=== PATIENT | male | born 1945 | race Caucasian/White ===

== ENCOUNTER 2023-08-17 20:34 | Inpatient (IN) | payer MEDICARE ==
[2023-08-17 23:44] LABS: ALT 14 U/L (4-49); AST 33 U/L (17-59); African American GFR (CKD) 7 (>60 ml/min/1.73 sqM); Alkaline Phosphatase 51 U/L (38-126); Anion Gap 16 mmol/L; Carbon Dioxide 16 mmol/L (22-30); Chloride 108 mmol/L (98-107); Glucose 208 mg/dL (74-99); Non-African American GFR(CKD) 6 (>60 ml/min/1.73 sqM); Sodium 140 mmol/L (137-145); Total Bilirubin 0.7 mg/dL (0.2-1.3); Total Protein 7.6 g/dL (6.3-8.2)
[2023-08-17 23:54] LABS: Glucose,Whole Blood 235 mg/dL (70-110)
[2023-08-17 23:56] LABS: Blood Urea Nitrogen 133 mg/dL (9-20); Potassium 4.8 mmol/L (3.5-5.1)
[2023-08-18 00:05] LABS: Basophils % (A) 1 %; Eosinophils # (A) 0.3 k/uL (0-0.7); Eosinophils % (A) 5 %; HCT 32.1 % (39.0-53.0); HGB 11.2 gm/dL (13.0-17.5); Lymphocytes # (A) 1.5 k/uL (1.0-4.8); Lymphocytes % (A) 21 %; MCH 32.4 pg (25.0-35.0); MCHC 34.7 g/dL (31.0-37.0); MCV 93.2 fL (80.0-100.0); Mean Platelet Volume 9.8; Monocytes # (A) 0.7 k/uL (0-1.0); Monocytes % (A) 11 %; Neutrophils # (A) 4.2 k/uL (1.3-7.7); Neutrophils % (A) 62 %; Platelet Count 150 k/uL (150-450); RBC 3.45 m/uL (4.30-5.90); RDW 13.4 % (11.5-15.5); WBC 6.9 k/uL (3.8-10.6)
[2023-08-18 01:41] LABS: Appearance,Urine Clear (Clear); Bilirubin,Urine Negative (Negative); Blood,Urine Negative (Negative); Color,Urine Colorless; Glucose,Urine (UA) 1+ (Negative); Ketones,Urine Negative (Negative); Leukocyte Esterase,Urine Negative (Negative); Nitrite,Urine Negative (Negative); Protein,Urine Trace (Negative); Specific Gravity,Urine 1.007 (1.001-1.035); Urobilinogen,Urine <2.0 mg/dL (<2.0)
[2023-08-18] MEDS ORDERED: NALOXONE 0.4 MG/ML 1 ML VIAL IV PRN (02:23)
[2023-08-18] MEDS ORDERED: ACETAMINOPHEN TAB 325 MG TAB PO PRN (02:23)
--- NOTE | 2023-08-18 02:30 | ED ---
General Adult HPI - General Chief complaint: Recheck/Abnormal Lab/Rx Stated complaint: Acute renal failure Time Seen by Provider: 08/17/23 23:19 Source: patient, RN notes reviewed, old records reviewed Mode of arrival: EMS Limitations: no limitations - History of Present Illness Initial comments: 77-year-old male presents as transfer from outside hospital with elevated BUN and creatinine. Patient was found to be in renal failure at [facility]. He had presented there with abnormal outpatient labs. Patient does admit to nausea over the past several days. He also admits to urinary incontinence. No abdominal pain. No chest pain. No fever. Patient denies NSAID use. He states he is a diabetic. - Related Data Allergies Allergy/AdvReac Type Severity Reaction Status Date / Time No Known Allergies Allergy Verified 08/17/23 21:21 Review of Systems ROS Statement: Those systems with pertinent positive or pertinent negative responses have been documented in the HPI. ROS Other: All systems not noted in ROS Statement are negative. Past Medical History Past Medical History: Diabetes Mellitus, Hypertension Past Surgical History: No Surgical Hx Reported Past Psychological History: No Psychological Hx Reported Smoking Status: Never smoker Past Alcohol Use History: None Reported Past Drug Use History: None Reported General Exam Limitations: no limitations General appearance: alert, in no apparent distress Head exam: Present: atraumatic, normocephalic Eye exam: Present: normal appearance. Absent: PERRL ENT exam: Present: normal exam Neck exam: Present: normal inspection. Absent: tenderness, meningismus Respiratory exam: Present: normal lung sounds bilaterally. Absent: respiratory distress Cardiovascular Exam: Present: regular rate, normal rhythm GI/Abdominal exam: Present: soft. Absent: distended, tenderness, guarding Extremities exam: Present: normal inspection Back exam: Present: normal inspection Neurological exam: Present: alert, oriented X3 Psychiatric exam: Present: normal affect, normal mood Skin exam: Present: warm, dry, intact Course Vital Signs 08/17/23 21:16 Temperature 97.8 F Pulse Rate 68 Respiratory 22 Rate Blood Pressure 182/108 O2 Sat by Pulse 98 Oximetry Medical Decision Making - Medical Decision Making Was pt. sent in by a medical professional or institution (, [place], CIRCUIT COURT CLERK, urgent care, hospital, or intermediate...) When possible be specific @ -No Did you speak to anyone other than the patient for history (EMS, parent, family, police, friend...)? What history was obtained from this source @ -No Did you review nursing and triage notes (agree or disagree)? Why? @ -I reviewed and agree with nursing and triage notes Were old charts reviewed (outside hosp., previous admission, EMS record, old EKG, old radiological studies, urgent care reports/EKG's, intermediate records)? Report findings @ -No old charts were reviewed Differential Diagnosis (chest pain, altered mental status, abdominal pain women, abdominal pain men, vaginal bleeding, weakness, fever, dyspnea, syncope, headache, dizziness, GI bleed, back pain, seizure, CVA, palpatations, mental health, musculoskeletal)? @ -Volume depletion, obstructive uropathy, renal failure EKG interpreted by me (3pts min.). @ Sinus rhythm left anterior fascicular block, rate of 60, MD interval 138, QRS duration 126, QTC 454 ST segment elevation. X-rays interpreted by me (1pt min.). @ -None done CT interpreted by me (1pt min.). @ -None done U/S interpreted by me (1pt. min.). @ -None done What testing was considered but not performed or refused? (CT, X-rays, U/S, labs)? Why? @ -None What meds were considered but not given or refused? Why? @ -None Did you discuss the management of the patient with other professionals (fili hoff i.e. , [place], CIRCUIT COURT CLERK, lab, RT, psych nurse, social economist, academic affairs manager, teacher, chief business officer, case operator)? Give summary @ -No Was smoking cessation discussed for >3mins.? @ -No Was critical care preformed (if so, how long)? @ -No Were there social determinants of health that impacted care today? How? (Homelessness, low income, unemployed, alcoholism, drug addiction, transportati on, low edu. Level, literacy, decrease access to med. care, penitentiary, rehab)? @ -No Was there de-escalation of care discussed even if they declined (Discuss DNR or withdrawal of care, Hospice)? DNR status @ -No What co-morbidities impacted this encounter? (DM, HTN, Smoking, COPD, CAD, Cancer, CVA, ARF, Chemo, Hep., AIDS, mental health diagnosis, sleep apnea, morbid obesity)? @ -[Diabetes Was patient admitted / discharged? Hospital course, mention meds given and route, prescriptions, significant lab abnormalities, going to OR and other pertinent info. @ -Patient transferred with renal failure. Patient has a BUN of 133 creatinine of 8. He has a normal potassium. He is mildly anemic. I Did Pl., Alcala catheter in the emergency department with over 1 L of urine output. Suspect this is the cause of his renal failure. Alcala catheter will be continued he will be placed on IV fluids. He'll be admitted to internal medicine with nephrology on consult. Undiagnosed new problem with uncertain prognosis? @ -No Drug Therapy requiring intensive monitoring for toxicity (Heparin, Nitro, Insulin, Cardizem)? @ -No Were any procedures done? @ -No Diagnosis/symptom? @ Renal failure, urinary retention Acute, or Chronic, or Acute on Chronic? @ -Acute Uncomplicated (without systemic symptoms) or Complicated (systemic symptoms)? @ -default Side effects of treatment? @ -No Exacerbation, Progression, or Severe Exacerbation? @ -No Poses a threat to life or bodily function? How? (Chest pain, [place], CO, pneumonia, PE, COPD, DKA, ARF, appy, cholecystitis, CVA, Diverticulitis, Homicidal, Suicidal, threat to staff... and all critical care pts) @ -[Yes, renal failure - Lab Data Result diagrams: 08/17/23 23:24 08/17/23 23:27 Lab Results 08/17/23 08/17/23 08/17/23 Range/Units 23:24 23:27 23:51 WBC 6.9 (3.8-10.6) k/uL RBC 3.45 L (4.30-5.90) m/uL Hgb 11.2 L (13.0-17.5) gm/dL Hct 32.1 L (39.0-53.0) % MCV 93.2 (80.0-100.0) fL MCH 32.4 (25.0-35.0) pg MCHC 34.7 (31.0-37.0) g/dL RDW 13.4 (11.5-15.5) % Plt Count 150 (150-450) k/uL MPV 9.8 Neutrophils % 62 % Lymphocytes % 21 % Monocytes % 11 % Eosinophils % 5 % Basophils % 1 % Neutrophils # 4.2 (1.3-7.7) k/uL Lymphocytes # 1.5 (1.0-4.8) k/uL Monocytes # 0.7 (0-1.0) k/uL Eosinophils # 0.3 (0-0.7) k/uL Basophils # 0.0 (0-0.2) k/uL Sodium 140 (137-145) mmol/L Potassium 4.8 (3.5-5.1) mmol/L Chloride 108 H (98-107) mmol/L Carbon Dioxide 16 L (22-30) mmol/L Anion Gap 16 mmol/L BUN 133 H* (9-20) mg/dL Creatinine 8.00 H* (0.66-1.25) mg/dL Est GFR (CKD-EPI)AfAm 7 (>60 ml/min/1.73 sqM) Est GFR (CKD-EPI)NonAf 6 (>60 ml/min/1.73 sqM) Glucose 208 H (74-99) mg/dL POC Glucose (mg/dL) 235 H (70-110) mg/dL POC Glu Field Test Engineer Merlyn Montejo Calcium 8.0 L (8.4-10.2) mg/dL Total Bilirubin 0.7 (0.2-1.3) mg/dL AST 33 (17-59) U/L ALT 14 (4-49) U/L Alkaline Phosphatase 51 (38-126) U/L Total Protein 7.6 (6.3-8.2) g/dL Albumin 4.0 (3.5-5.0) g/dL Urine Color Urine Appearance (Clear) Urine pH (5.0-8.0) Ur Specific [place] (1.001-1.035) Urine Protein (Negative) Urine Glucose (UA) (Negative) Urine Ketones (Negative) Urine Blood (Negative) Urine Nitrite (Negative) Urine Bilirubin (Negative) Urine Urobilinogen (<2.0) mg/dL Ur Leukocyte Esterase (Negative) 08/18/23 Range/Units 01:08 WBC (3.8-10.6) k/uL RBC (4.30-5.90) m/uL Hgb (13.0-17.5) gm/dL Hct (39.0-53.0) % MCV (80.0-100.0) fL MCH (25.0-35.0) pg MCHC (31.0-37.0) g/dL RDW (11.5-15.5) % Plt Count (150-450) k/uL MPV Neutrophils % % Lymphocytes % % Monocytes % % Eosinophils % % Basophils % % Neutrophils # (1.3-7.7) k/uL Lymphocytes # (1.0-4.8) k/uL Monocytes # (0-1.0) k/uL Eosinophils # (0-0.7) k/uL Basophils # (0-0.2) k/uL Sodium (137-145) mmol/L Potassium (3.5-5.1) mmol/L Chloride (98-107) mmol/L Carbon Dioxide (22-30) mmol/L Anion Gap mmol/L BUN (9-20) mg/dL Creatinine (0.66-1.25) mg/dL Est GFR (CKD-EPI)AfAm (>60 ml/min/1.73 sqM) Est GFR (CKD-EPI)NonAf (>60 ml/min/1.73 sqM) Glucose (74-99) mg/dL POC Glucose (mg/dL) (70-110) mg/dL POC Glu Field Test Engineer ID Calcium (8.4-10.2) mg/dL Total Bilirubin (0.2-1.3) mg/dL AST (17-59) U/L ALT (4-49) U/L Alkaline Phosphatase (38-126) U/L Total Protein (6.3-8.2) g/dL Albumin (3.5-5.0) g/dL Urine Color Colorless Urine Appearance Clear (Clear) Urine pH 6.0 (5.0-8.0) Ur Specific [place] 1.007 (1.001-1.035) Urine Protein Trace H (Negative) Urine Glucose (UA) 1+ H (Negative) Urine Ketones Negative (Negative) Urine Blood Negative (Negative) Urine Nitrite Negative (Negative) Urine Bilirubin Negative (Negative) Urine Urobilinogen <2.0 (<2.0) mg/dL Ur Leukocyte Esterase Negative (Negative) Disposition Clinical Impression: Renal failure, Urinary retention Disposition: ADMITTED IP TO THIS [facility] Condition: Stable Is patient prescribed a controlled substance at d/c from ED?: No Referrals: None,Stated [Primary Care Provider] - 1-2 days Time of Disposition: 02:30
[2023-08-18] MEDS: SODIUM CHLORIDE 0.9% 1,000 ML IV SCH ×2 (03:30→12:22)
[2023-08-18] MEDS: atenoloL 50 MG TAB PO SCH (10:04)
[2023-08-18] MEDS ORDERED: DEXTROSE 50% SYRINGE 50 ML IVP PRN ×2 (11:00)
--- NOTE | 2023-08-18 11:03 | P.NPCON ---
History of Present Illness - Reason for Consult acute renal failure - History of Present Illness Patient is a 77-year-old male with history of type 2 diabetes and hypertension. Patient presented to the hospital due to abnormal labs done at [facility]. Serum creatinine was 8.0 and B UN was 133. Patient denies any previous history of kidney diseases and reports regular follow-up with PCP Patient admits to difficulty in urination for about 1-2 months now. Patient was noted to have urine retention and Alcala catheter was placed. It appears that 2.3 L of urine was obtained. Patient has had complaints of nausea. No vomiting noted. No history of fever chills or diarrhea or cough. No history of use of NSAIDs Maintained on lisinopril/hydrochlorothiazide at home Blood sugar was 208. Blood pressure is not low, but elevated. Review of Systems As per HPI Past Medical History Past Medical History: Diabetes Mellitus, Hypertension Past Surgical History: No Surgical Hx Reported Past Psychological History: No Psychological Hx Reported Smoking Status: Never smoker Past Alcohol Use History: None Reported Past Drug Use History: None Reported Medications and Allergies Home Medications Medication Instructions Recorded Confirmed Type Insulin Glargine,Hum.rec.anlog 32 units SQ DAILY 08/18/23 08/18/23 History [Lantus Solostar Pen] Lisinopril-Hctz 20-12.5 mg 1 tab PO BID 08/18/23 08/18/23 History [Zestoretic 20-12.5] atenoloL [Tenormin] 50 mg PO DAILY 08/18/23 08/18/23 History Allergies Allergy/AdvReac Type Severity Reaction Status Date / Time No Known Allergies Allergy Verified 08/18/23 08:32 Physical Exam Vitals: Vital Signs Temp Pulse Resp BP Pulse Ox 08/18/23 09:24 98.0 F 61 16 163/99 99 08/18/23 06:00 72 18 189/106 98 08/18/23 02:56 97.5 F L 69 18 169/98 99 08/17/23 21:16 97.8 F 68 22 182/108 98 Intake and Output 08/17/23 08/18/23 08/18/23 22:59 06:59 14:59 Intake Total 300 Output Total 2300 1800 Balance -2300 -1500 Intake: Oral 300 Output: Urine 2300 1800 Other: # Bowel Movements 1 Weight 77.111 kg Patient is awake, comfortable, no acute distress Alert oriented 3 Examination of the heart S1 and S2 Examination of the lungs bilateral breath sounds are heard Abdomen is soft nontender Examination lower extremity shows no significant edema DOOR BUILDER exam grossly intact Results - Lab Results Most recent lab results Calcium 8.0 mg/dL (8.4-10.2) L 08/17/23 23:27 08/17/23 23:24 08/17/23 23:27 Assessment and Plan Assessment: 1. Acute kidney injury secondary to urine retention/obstructive uropathy. UA is benign. Alcala catheter is in place. It appears that 2.3 L of urine was obtained on initial Alcala placement. Check ultrasound of the kidneys and repeat labs today. Husam inhibitors on hold. 2. Rule out chronic kidney disease 3. Non-gap metabolic acidosis secondary to renal failure 4. Type 2 diabetes 5. Hypertension with CK D, uncontrolled Plan: And repeat labs today Resume home dose of Tenormin Continue to hold off on HUSAM inhibitor's Continue with IV fluids Repeat labs in a.m. Check ultrasound of the kidneys Consult urology Thank you for the consultation. We will continue to follow the patient with you during his hospitalization.
[2023-08-18 11:28] LABS: Glucose,Whole Blood 355 mg/dL (70-110)
[2023-08-18 11:42] LABS: African American GFR (CKD) 7 (>60 ml/min/1.73 sqM); Anion Gap 18 mmol/L; Calcium 8.4 mg/dL (8.4-10.2); Carbon Dioxide 14 mmol/L (22-30); Chloride 109 mmol/L (98-107); Glucose 308 mg/dL (74-99); Non-African American GFR(CKD) 6 (>60 ml/min/1.73 sqM); Sodium 141 mmol/L (137-145)
--- NOTE | 2023-08-18 11:45 | US ---
EXAMINATION TYPE: US kidneys/renal and bladder DATE OF EXAM: 08/18/2023 COMPARISON: NONE CLINICAL INDICATION: Male, 77 years old with history of russ; EXAM MEASUREMENTS: Right Kidney: 11.8 x 6.5 x 6.4 cm Left Kidney: 11.2 x 6.9 x 6.5 cm Right Kidney: Moderate to marked hydronephrosis noted; lateral septated cystic area measuring 3.4 x 3 .5 x 3.6 cm Left Kidney: Moderate to marked hydronephrosis Bladder: Alcala catheter Bilateral Jets seen: Cath in place IMPRESSION: 1. Prominent hydronephrosis bilateral kidneys. 2. Septated cyst lateral right kidney
[2023-08-18] MEDS: INSULIN DETEMIR (LEVEMIR) 100 UNIT/ML SYR SQ SCH (11:46)
[2023-08-18 11:50] LABS: Blood Urea Nitrogen 131 mg/dL (9-20)
[2023-08-18] MEDS: INSULIN ASPART (NovoLOG) 100 UNIT/ML VIAL SQ SCH ×2 (12:37→17:59)
--- NOTE | 2023-08-18 15:06 | P.HPIM ---
History of Present Illness H&P Date: 08/18/23 Chief Complaint: Worsening renal function This is a pleasant 77-year-old patient follows with Dr. Machuca. Patient has known diabetes, hypertension, chronic kidney disease. Patient was sent in yesterday to [facility] with elevated BUN/creatinine. Patient is given 2 L of normal saline then left AMA because his is bedbound. In February of this year patient's creatinine was 2.4 BUN 54. Yesterday it was 139/8.8. Patient had a Alcala catheter placed yesterday. Appetite is okay.. Tired. No nausea vomiting. Review of systems: GEN.: Tired EYES: None HEENT: None NECK: None RESPIRATORY: None CARDIOVASCULAR: None GASTROINTESTINAL: None GENITOURINARY: None MUSCULOSKELETAL: None LYMPHATICS: None HEMATOLOGICAL: None PSYCHIATRY: None NEUROLOGICAL: None Past medical history to include: Diabetes, hypertension, chronic kidney disease Social history: . No smoking or alcohol. [place] Physical examination: VITAL SIGNS: 98, 61, 16, 163/99, 99% room air GENERAL: BMI 26.6, sitting up in chair, awake. EYES: Pupils equal. Conjunctiva normal. HEENT: External appearance of nose and ears normal, oral cavity grossly normal. NECK: JVD not raised; masses not palpable. HEART: First and second heart sounds are normal; no edema. LUNGS: Respiratory rate normal; clear to auscultation. ABDOMEN: Soft, nontender, liver spleen not palpable, no masses palpable. . Alcala catheter PSYCH: Alert and oriented x3; mood and affect normal. MUSCULOSKELETAL:No Clubbing/cyanosis;muscles-grossly intact. OA NEUROLOGICAL: Cranial nerves grossly intact; no facial asymmetry, power and sensation grossly intact. LYMPHATICS: No lymph nodes palpable in the axilla and neck INVESTIGATIONS, reviewed in the clinical context: August 18: BUN 131 creatinine 8.17 bicarb 14 August 17: White count 6.9 hemoglobin 11.2 platelets and 15 sodium 140 bicarbonate 16 BUN 133 creatinine 8.0 glucose 208 EKG tracing personally reviewed by me-normal sinus rhythm. Left anterior fascicular block. LVH. Assessment and plan: -Acute on chronic kidney disease worsening. Nephrology consult. Strict I's and O's. Follow renal function closely -Metabolic acidosis secondary to renal failure IV sodium bicarbonate drip -Essential hypertension, but chronic kidney disease: Uncontrolled Atenolol 50 mg day. Add amlodipine 5 mg daily at bedtime -Diabetes mellitus type 2, chronically on insulin Levemir 26 units. Follow sliding scale with Accu-Cheks -Chronic kidney disease likely nephrosclerosis and diabetic nephropathy. Patient's creatinine was 2.1 in February 2023 -Primary osteoarthritis Tylenol as needed -Full code Past Medical History Past Medical History: Diabetes Mellitus, Hypertension Past Surgical History: No Surgical Hx Reported Past Psychological History: No Psychological Hx Reported Smoking Status: Never smoker Past Alcohol Use History: None Reported Past Drug Use History: None Reported Medications and Allergies Home Medications Medication Instructions Recorded Confirmed Type Insulin Glargine,Hum.rec.anlog 32 units SQ DAILY 08/18/23 08/18/23 History [Lantus Solostar Pen] Lisinopril-Hctz 20-12.5 mg 1 tab PO BID 08/18/23 08/18/23 History [Zestoretic 20-12.5] atenoloL [Tenormin] 50 mg PO DAILY 08/18/23 08/18/23 History Allergies Allergy/AdvReac Type Severity Reaction Status Date / Time No Known Allergies Allergy Verified 08/18/23 08:32 Physical Exam Vitals: Vital Signs Temp Pulse Resp BP Pulse Ox 08/18/23 09:24 98.0 F 61 16 163/99 99 08/18/23 06:00 72 18 189/106 98 08/18/23 02:56 97.5 F L 69 18 169/98 99 08/17/23 21:16 97.8 F 68 22 182/108 98 Intake and Output 08/17/23 08/18/23 08/18/23 22:59 06:59 14:59 Intake Total 300 Output Total 2300 1800 Balance -2300 -1500 Intake: Oral 300 Output: Urine 2300 1800 Other: # Bowel Movements 1 Weight 77.111 kg Results CBC & Chem 7: 08/17/23 23:24 08/18/23 10:24 Labs: Abnormal Lab Results - Last 24 Hours (Table) 08/17/23 08/17/23 08/17/23 Range/Units 23:24 23:27 23:51 RBC 3.45 L (4.30-5.90) m/uL Hgb 11.2 L (13.0-17.5) gm/dL Hct 32.1 L (39.0-53.0) % Chloride 108 H (98-107) mmol/L Carbon Dioxide 16 L (22-30) mmol/L BUN 133 H* (9-20) mg/dL Creatinine 8.00 H* (0.66-1.25) mg/dL Glucose 208 H (74-99) mg/dL POC Glucose (mg/dL) 235 H (70-110) mg/dL Calcium 8.0 L (8.4-10.2) mg/dL Urine Protein (Negative) Urine Glucose (UA) (Negative) 08/18/23 Range/Units 01:08 RBC (4.30-5.90) m/uL Hgb (13.0-17.5) gm/dL Hct (39.0-53.0) % Chloride (98-107) mmol/L Carbon Dioxide (22-30) mmol/L BUN (9-20) mg/dL Creatinine (0.66-1.25) mg/dL Glucose (74-99) mg/dL POC Glucose (mg/dL) (70-110) mg/dL Calcium (8.4-10.2) mg/dL Urine Protein Trace H (Negative) Urine Glucose (UA) 1+ H (Negative)
[2023-08-18] MEDS: DEXTROSE 5% IN WATER 1,000 ML with SODIUM BICARB (1 MEQ/ML) 100 ML IV SCH (16:23)
[2023-08-18 17:43] LABS: Glucose,Whole Blood 221 mg/dL (70-110)
[2023-08-18] MEDS: ENOXAPARIN 40 MG/0.4 ML SYRINGE SQ SCH (18:40)
[2023-08-18] MEDS: amLODIPine 5 MG TAB PO SCH (20:51)
[2023-08-19] MEDS: DEXTROSE 5% IN WATER 1,000 ML with SODIUM BICARB (1 MEQ/ML) 100 ML IV SCH ×3 (04:07→20:44)
[2023-08-19 05:52] LABS: Glucose,Whole Blood 192 mg/dL (70-110)
[2023-08-19] MEDS: INSULIN ASPART (NovoLOG) 100 UNIT/ML VIAL SQ SCH ×3 (06:47→16:50)
[2023-08-19] MEDS: atenoloL 50 MG TAB PO SCH (07:54)
[2023-08-19] MEDS: INSULIN DETEMIR (LEVEMIR) 100 UNIT/ML SYR SQ SCH (07:54)
[2023-08-19] MEDS: ENOXAPARIN 40 MG/0.4 ML SYRINGE SQ SCH (07:54)
[2023-08-19 08:47] LABS: Basophils % (A) 0 %; Eosinophils # (A) 0.2 k/uL (0-0.7); Eosinophils % (A) 2 %; HCT 31.5 % (39.0-53.0); HGB 10.6 gm/dL (13.0-17.5); Lymphocytes # (A) 1.4 k/uL (1.0-4.8); Lymphocytes % (A) 15 %; MCHC 33.8 g/dL (31.0-37.0); MCV 94.7 fL (80.0-100.0); Mean Platelet Volume 9.2; Monocytes # (A) 0.8 k/uL (0-1.0); Monocytes % (A) 8 %; Neutrophils # (A) 6.8 k/uL (1.3-7.7); Neutrophils % (A) 72 %; Platelet Count 170 k/uL (150-450); RBC 3.32 m/uL (4.30-5.90); RDW 13.4 % (11.5-15.5); WBC 9.4 k/uL (3.8-10.6)
[2023-08-19 09:00] LABS: ALT 10 U/L (4-49); AST 16 U/L (17-59); African American GFR (CKD) 7 (>60 ml/min/1.73 sqM); Albumin 3.4 g/dL (3.5-5.0); Alkaline Phosphatase 55 U/L (38-126); Anion Gap 14 mmol/L; Calcium 7.9 mg/dL (8.4-10.2); Carbon Dioxide 18 mmol/L (22-30); Chloride 108 mmol/L (98-107); Glucose 185 mg/dL (74-99); Magnesium 1.2 mg/dL (1.6-2.3); Non-African American GFR(CKD) 6 (>60 ml/min/1.73 sqM); Phosphorus 5.5 mg/dL (2.5-4.5); Sodium 140 mmol/L (137-145); Total Bilirubin 0.5 mg/dL (0.2-1.3); Total Protein 6.5 g/dL (6.3-8.2)
[2023-08-19 09:25] LABS: Blood Urea Nitrogen 132 mg/dL (9-20)
[2023-08-19 11:41] LABS: Glucose,Whole Blood 183 mg/dL (70-110)
--- NOTE | 2023-08-19 11:42 | P.PN ---
Subjective Patient is seen for follow-up for acute kidney injury mostly obstructive uropathy with significant urine retention. Status post Alcala catheter plac ement. Serum creatinine remains elevated. It is at 7.4 from 8.1 yesterday. Patient has had good urine output. No complaints of nausea vomiting. Mentation appears to be intact. I discussed renal replacement therapy with the patient if renal function does not improve further by tomorrow. No episodes of hypotension. Ultrasound shows bilateral hydronephrosis, moderate to marked Objective - Vital Signs Vital signs: Vital Signs Temp 97.6 F 08/19/23 11:06 Pulse 70 08/19/23 11:06 Resp 16 08/19/23 11:06 BP 144/90 08/19/23 11:06 Pulse Ox 100 08/19/23 11:06 FiO2 Intake & Output 08/18/23 08/19/23 08/19/23 18:59 06:59 18:59 Intake Total 900 240 597 Output Total 3250 1100 1100 Balance -2350 -860 -503 Weight 77.111 kg Intake: Oral 900 240 597 Output: Urine 3250 1100 550 Uretheral (Alcala) 600 550 Other 550 Other: Voiding Method Indwelling Catheter Indwelling Catheter # Bowel Movements 1 - Exam Patient is awake, comfortable, no acute distress Alert oriented 3 Examination of the heart S1 and S2 Examination of the lungs bilateral breath sounds are heard Abdomen is soft nontender Examination lower extremity shows no significant edema [employer]PATCHER [employer] exam grossly intact - Labs CBC & Chem 7: 08/19/23 07:39 08/19/23 07:39 Labs: Abnormal Lab Results - Last 24 Hours (Table) 08/18/23 08/18/23 08/19/23 Range/Units 10:24 17:40 05:50 RBC (4.30-5.90) m/uL Hgb (13.0-17.5) gm/dL Hct (39.0-53.0) % Chloride 109 H (98-107) mmol/L Carbon Dioxide 14 L (22-30) mmol/L BUN 131 H* (9-20) mg/dL Creatinine 8.17 H* (0.66-1.25) mg/dL Glucose 308 H (74-99) mg/dL POC Glucose (mg/dL) 221 H 192 H (70-110) mg/dL Calcium (8.4-10.2) mg/dL Phosphorus (2.5-4.5) mg/dL Magnesium (1.6-2.3) mg/dL AST (17-59) U/L Albumin (3.5-5.0) g/dL 08/19/23 08/19/23 Range/Units 07:39 07:39 RBC 3.32 L (4.30-5.90) m/uL Hgb 10.6 L (13.0-17.5) gm/dL Hct 31.5 L (39.0-53.0) % Chloride 108 H (98-107) mmol/L Carbon Dioxide 18 L (22-30) mmol/L BUN 132 H* (9-20) mg/dL Creatinine 7.47 H* (0.66-1.25) mg/dL Glucose 185 H (74-99) mg/dL POC Glucose (mg/dL) (70-110) mg/dL Calcium 7.9 L (8.4-10.2) mg/dL Phosphorus 5.5 H (2.5-4.5) mg/dL Magnesium 1.2 L (1.6-2.3) mg/dL AST 16 L (17-59) U/L Albumin 3.4 L (3.5-5.0) g/dL Assessment and Plan Assessment: 1. Acute kidney injury secondary to urine retention/obstructive uropathy. UA is benign. Alcala catheter is in place. It appears that 2.3 L of urine was obtained on initial Alcala placement. Ultrasound shows bilateral moderate to severe hydronephrosis.. Husam inhibitors on hold. 2. Rule out chronic kidney disease 3. Non-gap metabolic acidosis secondary to renal failure 4. Type 2 diabetes 5. Hypertension with CK D, uncontrolled Plan: Continue with IV fluids Repeat labs in a.m. Await urology evaluation. If renal function does not improve further by tomorrow patient will need hemodialysis. Currently asymptomatic.
[2023-08-19 11:51] VITALS: BMI 26.6
[2023-08-19] MEDS: MAGNESIUM OXIDE 400 MG TAB PO SCH ×2 (12:03→19:54)
--- NOTE | 2023-08-19 16:22 | P.GSCN ---
History of Present Illness Consult date: 08/19/23 Reason for Consult: bilateral hydronephrosis History of present illness: This is a 77 yo male admitted to the hospital with SOLITARIO. Urology is consulted for bilateral hydronephrosis and urinary retention. Patient had a Alcala catheter placed for urinary retention of 2.6 L. He indicated for the past month has been having difficulty voiding, indicates she strains to void with a weak stream No previous history of urinary retention, gross hematuria or UTIs or kidney stones. Underwent a renal bladder ultrasound that showed evidence of bilateral hydronephrosis. repeat creatinine this morning is persisting elevated at 7.7, his baseline is unknown Review of Systems - Constitutional Denies fever, Denies weight loss - Cardiovascular Denies chest pain, Denies shortness of breath - Respiratory Denies cough, Denies 7 - Gastrointestinal Reports as per HPI - Neurological Denies headaches, Denies syncope Past Medical History Past Medical History: Diabetes Mellitus, Hypertension History of Any Multi-Drug Resistant Organisms: None Reported Past Surgical History: No Surgical Hx Reported Past Anesthesia/Blood Transfusion Reactions: No Reported Reaction Past Psychological History: No Psychological Hx Reported Smoking Status: Never smoker Past Alcohol Use History: None Reported Past Drug Use History: None Reported Medications and Allergies Home Medications Medication Instructions Recorded Confirmed Type Insulin Glargine,Hum.rec.anlog 32 units SQ DAILY 08/18/23 08/18/23 History [Lantus Solostar Pen] Lisinopril-Hctz 20-12.5 mg 1 tab PO BID 08/18/23 08/18/23 History [Zestoretic 20-12.5] atenoloL [Tenormin] 50 mg PO DAILY 08/18/23 08/18/23 History Allergies Allergy/AdvReac Type Severity Reaction Status Date / Time No Known Allergies Allergy Verified 08/18/23 08:32 Surgical - Exam Vital Signs Temp Pulse Resp BP Pulse Ox 97.8 F 68 22 182/108 98 08/17/23 21:16 08/17/23 21:16 08/17/23 21:16 08/17/23 21:16 08/17/23 21:16 - General no distress, no pain - ENT normal nares, normal mucosa - Respiratory normal expansion, normal respiratory effort - Abdomen Abdomen: soft, non tender, no distended - Psychiatric oriented to time, oriented to person, oriented to place Results - Labs 08/19/23 07:39 08/19/23 07:39 Abnormal Lab Results - Last 24 Hours (Table) 08/18/23 08/19/23 08/19/23 Range/Units 17:40 05:50 07:39 RBC 3.32 L (4.30-5.90) m/uL Hgb 10.6 L (13.0-17.5) gm/dL Hct 31.5 L (39.0-53.0) % Chloride (98-107) mmol/L Carbon Dioxide (22-30) mmol/L BUN (9-20) mg/dL Creatinine (0.66-1.25) mg/dL Glucose (74-99) mg/dL POC Glucose (mg/dL) 221 H 192 H (70-110) mg/dL Calcium (8.4-10.2) mg/dL Phosphorus (2.5-4.5) mg/dL Magnesium (1.6-2.3) mg/dL AST (17-59) U/L Albumin (3.5-5.0) g/dL 08/19/23 08/19/23 Range/Units 07:39 11:39 RBC (4.30-5.90) m/uL Hgb (13.0-17.5) gm/dL Hct (39.0-53.0) % Chloride 108 H (98-107) mmol/L Carbon Dioxide 18 L (22-30) mmol/L BUN 132 H* (9-20) mg/dL Creatinine 7.47 H* (0.66-1.25) mg/dL Glucose 185 H (74-99) mg/dL POC Glucose (mg/dL) 183 H (70-110) mg/dL Calcium 7.9 L (8.4-10.2) mg/dL Phosphorus 5.5 H (2.5-4.5) mg/dL Magnesium 1.2 L (1.6-2.3) mg/dL AST 16 L (17-59) U/L Albumin 3.4 L (3.5-5.0) g/dL Diabetes panel 08/19/23 Range/Units 07:39 Sodium 140 (137-145) mmol/L Potassium 4.0 (3.5-5.1) mmol/L Chloride 108 H (98-107) mmol/L Carbon Dioxide 18 L (22-30) mmol/L BUN 132 H* (9-20) mg/dL Creatinine 7.47 H* (0.66-1.25) mg/dL Glucose 185 H (74-99) mg/dL Calcium 7.9 L (8.4-10.2) mg/dL AST 16 L (17-59) U/L ALT 10 (4-49) U/L Alkaline Phosphatase 55 (38-126) U/L Total Protein 6.5 (6.3-8.2) g/dL Albumin 3.4 L (3.5-5.0) g/dL Calcium panel 08/19/23 Range/Units 07:39 Calcium 7.9 L (8.4-10.2) mg/dL Phosphorus 5.5 H (2.5-4.5) mg/dL Albumin 3.4 L (3.5-5.0) g/dL Pituitary panel 08/19/23 Range/Units 07:39 Sodium 140 (137-145) mmol/L Potassium 4.0 (3.5-5.1) mmol/L Chloride 108 H (98-107) mmol/L Carbon Dioxide 18 L (22-30) mmol/L BUN 132 H* (9-20) mg/dL Creatinine 7.47 H* (0.66-1.25) mg/dL Glucose 185 H (74-99) mg/dL Calcium 7.9 L (8.4-10.2) mg/dL Adrenal panel 08/19/23 Range/Units 07:39 Sodium 140 (137-145) mmol/L Potassium 4.0 (3.5-5.1) mmol/L Chloride 108 H (98-107) mmol/L Carbon Dioxide 18 L (22-30) mmol/L BUN 132 H* (9-20) mg/dL Creatinine 7.47 H* (0.66-1.25) mg/dL Glucose 185 H (74-99) mg/dL Calcium 7.9 L (8.4-10.2) mg/dL Total Bilirubin 0.5 (0.2-1.3) mg/dL AST 16 L (17-59) U/L ALT 10 (4-49) U/L Alkaline Phosphatase 55 (38-126) U/L Total Protein 6.5 (6.3-8.2) g/dL Albumin 3.4 L (3.5-5.0) g/dL Assessment and Plan Assessment: 77-year-old male admitted to the hospital with acute kidney injury renal ultrasound showed evidence of bilateral hydronephrosis, patient was in 2.6 L urinary retention and bilateral hydronephrosis most likely secondary to his urinary retention and bladder distention. -Repeat creatinine tomorrow, if persistently elevated we will obtain a CT abdomen and pelvis to rule out any other etiologies for the hydronephrosis
[2023-08-19 16:23] LABS: Glucose,Whole Blood 201 mg/dL (70-110)
--- NOTE | 2023-08-19 17:34 | P.PN ---
Progress Note - Text Progress Note Date: 08/19/23 Chief Complaint: Worsening renal function This is a pleasant 77-year-old patient follows with Dr. Machuca. Patient has known diabetes, hypertension, chronic kidney disease. Patient was sent in yesterday to [facility] with elevated BUN/creatinine. Patient is given 2 L of normal saline then left AMA because his is bedbound. In February of this year patient's creatinine was 2.4 BUN 54. Yesterday it was 139/8.8. Patient had a Alcala catheter placed yesterday. Appetite is okay.. Tired. No nausea vomiting. August 19: IV sodium bicarbonate drip because of metabolic acidosis. Eating well. Tired. Up in a chair. Active Medications Acetaminophen (Acetaminophen Tab 325 Mg Tab) 650 mg PO Q6HR PRN PRN Reason: Mild Pain or Fever > 100.5 Amlodipine Besylate (Amlodipine 5 Mg Tab) 5 mg PO HS [facility] Last Admin: 08/18/23 20:51 Dose: 5 mg Atenolol (Atenolol 50 Mg Tab) 50 mg PO DAILY [facility] Last Admin: 08/19/23 07:54 Dose: 50 mg Dextrose/Water (Dextrose 50% Syringe 50 Ml) 25 ml IVP PER PROTOCOL PRN; Protocol PRN Reason: Hypoglycemia Dextrose/Water (Dextrose 50% Syringe 50 Ml) 50 ml IVP PER PROTOCOL PRN; Protocol PRN Reason: Hypoglycemia Enoxaparin Sodium (Enoxaparin 30 Mg/0.3 Ml Syringe) 30 mg SQ DAILY [facility] Sodium Bicarbonate 100 ml/ (Dextrose/Water) 1,100 mls @ 100 mls/hr IV .Q11H [facility] Last Admin: 08/19/23 10:08 Dose: 100 mls/hr Insulin Aspart (Insulin Aspart (Novolog) 100 Unit/Ml Vial) 0 unit SQ AC-TID [facility] ; Protocol Last Admin: 08/19/23 16:50 Dose: 4 unit Insulin Detemir (Insulin Detemir (Levemir) 100 Unit/Ml Syr) 26 unit SQ DAILY [facility] Last Admin: 08/19/23 07:54 Dose: 26 unit Magnesium Oxide (Magnesium Oxide 400 Mg Tab) 200 mg PO BID [facility] Last Admin: 08/19/23 12:03 Dose: 200 mg Naloxone HCl (Naloxone 0.4 Mg/Ml 1 Ml Vial) 0.2 mg IV Q2M PRN PRN Reason: Opioid Reversal Past medical history to include: Diabetes, hypertension, chronic kidney disease Social history: . No smoking or alcohol. [place] Physical examination: VITAL SIGNS: 97.8, 69, 16, 109/74, 99% room air GENERAL: BMI 26.6, sitting up in chair, EYES: Pupils equal. Conjunctiva normal. HEENT: External appearance of nose and ears normal, oral cavity grossly normal. NECK: JVD not raised; masses not palpable. HEART: First and second heart sounds are normal; no edema. LUNGS: Respiratory rate normal; clear to auscultation. ABDOMEN: Soft, nontender, liver spleen not palpable, no masses palpable. . Alcala catheter PSYCH: Alert and oriented x3; mood and affect normal. MUSCULOSKELETAL:No Clubbing/cyanosis;muscles-grossly intact. OA INVESTIGATIONS, reviewed in the clinical context: August 19: White count 9.4 hemoglobin 10.6 platelets 64187 BUN 132 creatinine 7.47 magnesium 1.2 August 18: BUN 131 creatinine 8.17 bicarb 14 August 17: White count 6.9 hemoglobin 11.2 platelets and 15 sodium 140 bicarbonate 16 BUN 133 creatinine 8.0 glucose 208 EKG tracing personally reviewed by me-normal sinus rhythm. Left anterior fascicular block. LVH. Assessment and plan: -Acute on chronic kidney disease: Slow to respond Nephrology consult. Strict I's and O's. IV bicarbonate drip Follow renal function closely -Metabolic acidosis secondary to renal failure: Slow to respond IV sodium bicarbonate drip -Essential hypertension, with chronic kidney disease: Better Atenolol 50 mg day. amlodipine 5 mg daily at bedtime -Diabetes mellitus type 2, chronically on insulin Levemir 26 units. Follow sliding scale with Accu-Cheks -Chronic kidney disease likely nephrosclerosis and diabetic nephropathy. Patient's creatinine was 2.1 in February 2023 -Primary osteoarthritis Tylenol as needed -Full code Discussed with patient. Continue IV bicarbonate drip. Follow labs. Past Medical History Past Medical History: Diabetes Mellitus, Hypertension Past Surgical History: No Surgical Hx Reported Past Psychological History: No Psychological Hx Reported Smoking Status: Never smoker Past Alcohol Use History: None Reported Past Drug Use History: None Reported
[2023-08-19 19:38] LABS: Glucose,Whole Blood 221 mg/dL (70-110)
[2023-08-19] MEDS: amLODIPine 5 MG TAB PO SCH (19:54)
[2023-08-20 05:52] LABS: Glucose,Whole Blood 230 mg/dL (70-110)
[2023-08-20] MEDS: INSULIN ASPART (NovoLOG) 100 UNIT/ML VIAL SQ SCH ×4 (06:04→16:57)
[2023-08-20 07:01] LABS: African American GFR (CKD) 8 (>60 ml/min/1.73 sqM); Anion Gap 12 mmol/L; Calcium 7.4 mg/dL (8.4-10.2); Carbon Dioxide 26 mmol/L (22-30); Chloride 101 mmol/L (98-107); Glucose 217 mg/dL (74-99); Non-African American GFR(CKD) 7 (>60 ml/min/1.73 sqM); Potassium 3.3 mmol/L (3.5-5.1); Sodium 139 mmol/L (137-145)
[2023-08-20 07:13] LABS: Blood Urea Nitrogen 130 mg/dL (9-20)
[2023-08-20] MEDS: MAGNESIUM OXIDE 400 MG TAB PO SCH ×2 (08:53→20:41)
[2023-08-20] MEDS: atenoloL 50 MG TAB PO SCH (08:55)
[2023-08-20 08:56] LABS: Glucose,Whole Blood 263 mg/dL (70-110)
[2023-08-20] MEDS ORDERED: ENOXAPARIN 30 MG/0.3 ML SYRINGE SQ SCH (09:00)
[2023-08-20] MEDS ORDERED: INSULIN DETEMIR (LEVEMIR) 100 UNIT/ML SYR SQ SCH (09:00)
[2023-08-20] MEDS: DEXTROSE 5% IN WATER 1,000 ML with SODIUM BICARB (1 MEQ/ML) 100 ML IV SCH ×2 (10:00→20:41)
[2023-08-20] MEDS: APIXABAN 2.5 MG TABLET PO SCH ×2 (10:38→20:41)
[2023-08-20] MEDS ORDERED: POTASSIUM CHLORIDE ER 20 MEQ TAB.ER PO STA (10:59)
--- NOTE | 2023-08-20 10:59 | P.PN ---
Subjective Patient is seen for follow-up for acute kidney injury mostly obstructive uropathy with significant urine retention. Status post Alcala catheter plac ement. Serum creatinine remains elevated. It is at 6.9 from 8.1 on admission. Patient has had good urine output. No complaints of nausea vomiting. Mentation appears to be intact. I discussed renal replacement therapy with the patient we will continue to monitor on a daily basis for need for dialysis. Ultrasound shows bilateral hydronephrosis, moderate to marked. Patient has been evaluated by urology. Will likely need intervention. Computed tomography scan of the abdomen will be ordered. Objective - Vital Signs Vital signs: Vital Signs Temp 97.8 F 08/19/23 15:17 Pulse 96 08/20/23 04:00 Resp 16 08/20/23 04:00 BP 112/72 08/20/23 04:00 Pulse Ox 96 08/20/23 04:00 FiO2 Intake & Output 08/19/23 08/20/23 08/20/23 18:59 06:59 18:59 Intake Total 837 118 Output Total 2125 1800 800 Balance -1288 -1800 -682 Weight 77.111 kg Intake: Oral 837 118 Output: Urine 1575 1800 800 Uretheral (Alcala) 550 500 Other 550 Other: Voiding Method Indwelling Catheter Indwelling Catheter # Bowel Movements 1 - Exam Patient is awake, comfortable, no acute distress Alert oriented 3 Examination of the heart S1 and S2 Examination of the lungs bilateral breath sounds are heard Abdomen is soft nontender Examination lower extremity shows no significant edema ACCOUNT DEVELOPMENT SPECIALIST exam grossly intact - Labs CBC & Chem 7: 08/19/23 07:39 08/20/23 06:28 Labs: Abnormal Lab Results - Last 24 Hours (Table) 08/19/23 08/19/23 08/19/23 Range/Units 11:39 16:21 19:36 Potassium (3.5-5.1) mmol/L BUN (9-20) mg/dL Creatinine (0.66-1.25) mg/dL Glucose (74-99) mg/dL POC Glucose (mg/dL) 183 H 201 H 221 H (70-110) mg/dL Calcium (8.4-10.2) mg/dL 08/20/23 08/20/23 08/20/23 Range/Units 05:50 06:28 08:52 Potassium 3.3 L (3.5-5.1) mmol/L BUN 130 H* (9-20) mg/dL Creatinine 6.94 H (0.66-1.25) mg/dL Glucose 217 H (74-99) mg/dL POC Glucose (mg/dL) 230 H 263 H (70-110) mg/dL Calcium 7.4 L (8.4-10.2) mg/dL Assessment and Plan Assessment: 1. Acute kidney injury secondary to urine retention/obstructive uropathy. UA is benign. Alcala catheter is in place. It appears that 2.3 L of urine was obtained on initial Alcala placement. Ultrasound shows bilateral moderate to severe hydronephrosis.. Husam inhibitors on hold. Being monitored daily for need for renal replacement therapy. 2. Rule out chronic kidney disease 3. Non-gap metabolic acidosis secondary to renal failure 4. Type 2 diabetes 5. Hypertension with CK D, uncontrolled 6. Hypokalemia, will replace cautiously Plan: Continue with IV fluids Replace potassium cautiously Check CT of the abdomen and pelvis Await further urology input. Continue to monitor for need for dialysis if renal function does not improve further.
--- NOTE | 2023-08-20 11:14 | CT ---
EXAMINATION TYPE: CT abdomen pelvis wo con DATE OF EXAM: 08/20/2023 COMPARISON: None HISTORY: Elevated kidney function. CT DLP: 603.8 mGycm Examination of the solid and hollow viscera is limited given the lack of contrast. FINDINGS: LUNG BASES: No evidence for nodule. No evidence for infiltrate. LIVER/GB: The gallbladder is unremarkable. No space-occupying hepatic lesion. PANCREAS: No pancreatic mass identified. No inflammatory process seen. SPLEEN: No evidence for splenomegaly. No intrasplenic lesions seen. ADRENALS: No adrenal nodules identified. No evidence for thickening. KIDNEYS: There is moderate to severe hydroureteronephrosis extending to a markedly thickened urinary bladder wall. Correlate for neoplasm or underlying cystitis nonspecific type. Alcala catheter is in [address] [place]. BOWEL: Appendix has a normal appearance. No evidence of bowel obstruction. No inflammatory process. Lymph nodes: No evidence for adenopathy greater than 1 cm. Abdominal aorta: Atheromatous changes seen. No evidence for aneurysm. Genital organs: Prostate gland calcifications noted. Other: No significant abnormality. IMPRESSION: 1.There is moderate to severe hydroureteronephrosis extending to a markedly thickened urinary bladder wall. Correlate for neoplasm or underlying cystitis nonspecific type.
--- NOTE | 2023-08-20 11:15 | P.CRDCN ---
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 We have been asked to evaluate the patient for new onset atrial fibrillation. Patient has a history of diabetes and hypertension. Patient resented to the hospital on 08/18 and has been treated for acute kidney injury with obstructive uropathy status post Alcala catheter followed by nephrology and urology. Patient states he had an episode of indigestion last night but feels better now. Patient was found to be in atrial fibrillation and subsequently converted to sinus rhythm. EKG #1 normal sinus rhythm #2 atrial fibrillation at 104 bpm WBC 9.4, hemoglobin 10.6. Sodium 139, potassium 3.3, BUN 130 and creatinine 6.94. Blood sugar 217. Home cardiac medications: Atenolol 50 mg daily, lisinoprilcritical her thiazide 2012 0.5 mg twice daily Review Of Systems: At the time of my evaluation: Constitutional: No fever, no chills. No weakness, fatigue or lethargy. EENT: No headache. No dizziness. Lungs: No shortness of breath, cough, no sputum production. No wheezing. Cardiovascular: No chest pain, no lower extremity edema. No palpitations. No paroxysmal nocturnal dyspnea. No orthopnea. No lightheadedness or dizziness. No syncopal episodes. Abdominal: No abdominal pain. No nausea, vomiting. No diarrhea. No constipation. No bloody or tarry stools. Genitourinary: No dysuria.. No urinary retention. Musculoskeletal: No myalgias. No muscle weakness, no frequent falls. No back pain. No neck pain. Integumentary: No wounds. No rash. No unusual bruising. Neurologic: No aphasia. No facial droop. No change in mentation. No head injury. No headache. Physical examination: Gen: This is a 77-year-old male patient. He is resting in bed appears to be comfortable and in no acute distress. VS: reviewed HEENT: Head is atraumatic, normocephalic. Pupils equal, round. Sclerae is anicteric. NECK: Supple. No JVD. . LUNGS: Clear to auscultation. No wheezes or rhonchi. No intercostal retractions. HEART: Regular rate and rhythm. No murmur. ABDOMEN: Soft No tenderness. EXTREMITIES: No pedal edema. No calf tenderness. NEUROLOGICAL: Patient is awake, alert and oriented x3. Assessment: Acute kidney injury New onset of A. fib with RVR, paroxysmal, currently in sinus rhythm Hypertension Diabetes Plan: Continue atenolol 50 mg daily Start patient on eliquis 2.5 mg twice daily Obtain 2-D echocardiogram and Doppler study to assess cardiac structure and function Further recommendations to follow based upon clinical course Thank you kindly for this consultation. Nurse practitioner note has been reviewed, I agree with documented findings and plan of care. Patient was seen and examined. Past Medical History Past Medical History: Diabetes Mellitus, Hypertension History of Any Multi-Drug Resistant Organisms: None Reported Past Surgical History: No Surgical Hx Reported Past Anesthesia/Blood Transfusion Reactions: No Reported Reaction Past Psychological History: No Psychological Hx Reported Smoking Status: Never smoker Past Alcohol Use History: None Reported Past Drug Use History: None Reported Medications and Allergies Home Medications Medication Instructions Recorded Confirmed Type Insulin Glargine,Hum.rec.anlog 32 units SQ DAILY 08/18/23 08/18/23 History [Lantus Solostar Pen] Lisinopril-Hctz 20-12.5 mg 1 tab PO BID 08/18/23 08/18/23 History [Zestoretic 20-12.5] atenoloL [Tenormin] 50 mg PO DAILY 08/18/23 08/18/23 History Allergies Allergy/AdvReac Type Severity Reaction Status Date / Time No Known Allergies Allergy Verified 08/18/23 08:32 Physical Exam Vitals: Vital Signs Temp Pulse Resp BP Pulse Ox 08/20/23 04:00 96 16 112/72 96 08/20/23 00:27 114 H 18 115/70 97 08/19/23 19:53 75 18 120/82 99 08/19/23 15:17 97.8 F 69 16 109/74 99 08/19/23 11:06 97.6 F 70 16 144/90 100 Intake and Output 08/19/23 08/20/23 08/20/23 22:59 06:59 14:59 Intake Total 240 118 Output Total 1025 1800 800 Balance -000 -7305 -522 Intake: Oral 240 118 Output: Urine 1025 1800 800 Uretheral (Alcala) 500 Other: Voiding Method Indwelling Catheter Indwelling Catheter Results 08/19/23 07:39 08/20/23 06:28 Comprehensive Metabolic Panel 08/20/23 Range/Units 06:28 Sodium 139 (137-145) mmol/L Potassium 3.3 L (3.5-5.1) mmol/L Chloride 101 (98-107) mmol/L Carbon Dioxide 26 (22-30) mmol/L BUN 130 H* (9-20) mg/dL Creatinine 6.94 H (0.66-1.25) mg/dL Glucose 217 H (74-99) mg/dL Calcium 7.4 L (8.4-10.2) mg/dL Current Medications Generic Name Dose Route Start Last Admin Trade Name Freq PRN Reason Stop Dose Admin Acetaminophen 650 mg 08/18/23 02:23 Acetaminophen Tab 325 Mg Tab PO Q6HR PRN Mild Pain or Fever > 100.5 Amlodipine Besylate 5 mg 08/18/23 21:00 08/19/23 19:54 Amlodipine 5 Mg Tab PO 5 mg HS EDGARDO Administration Atenolol 50 mg 08/18/23 09:45 08/20/23 08:55 Atenolol 50 Mg Tab PO 50 mg DAILY EDGARDO Administration Dextrose/Water 25 ml 08/18/23 11:00 Dextrose 50% Syringe 50 Ml IVP PER PROTOCOL PRN Hypoglycemia Protocol Dextrose/Water 50 ml 08/18/23 11:00 Dextrose 50% Syringe 50 Ml IVP PER PROTOCOL PRN Hypoglycemia Protocol Enoxaparin Sodium 30 mg 08/20/23 09:00 08/20/23 08:54 Enoxaparin 30 Mg/0.3 Ml Syringe SQ 30 mg DAILY EDGARDO Administration Sodium Bicarbonate 100 ml/ 1,100 mls @ 100 mls/hr 08/18/23 15:15 08/19/23 20:44 Dextrose/Water IV 100 mls/hr .Q11H EDGARDO Administration Insulin Aspart 0 unit 08/18/23 12:30 08/20/23 06:04 Insulin Aspart (Novolog) 100 Unit/Ml Vial SQ 4 unit AC-TID EDGARDO Administration Protocol Insulin Detemir 30 unit 08/20/23 09:00 08/20/23 08:53 Insulin Detemir (Levemir) 100 Unit/Ml Syr SQ 30 unit DAILY EDGARDO Administration Magnesium Oxide 200 mg 08/19/23 11:45 08/20/23 08:53 Magnesium Oxide 400 Mg Tab PO 200 mg BID EDGARDO Administration Naloxone HCl 0.2 mg 08/18/23 02:23 Naloxone 0.4 Mg/Ml 1 Ml Vial IV Q2M PRN Opioid Reversal Intake and Output 08/19/23 08/20/23 08/20/23 22:59 06:59 14:59 Intake Total 240 118 Output Total 1025 1800 800 [facility] -242 -1800 -672 Intake: Oral 240 118 Output: Urine 1025 1800 800 Uretheral (Alcala) 500 Other: Voiding Method Indwelling Catheter Indwelling Catheter 08/19/23 07:39 08/20/23 06:28
[2023-08-20 11:25] LABS: Glucose,Whole Blood 216 mg/dL (70-110)
--- NOTE | 2023-08-20 13:59 | P.PN ---
Subjective Progress Note Date: 08/20/23 Principal diagnosis: Bilateral hydronephrosis Creatinine is 6.94. Reviewed his CT scan evidence of dilated ureter down to a thickened bladder, consistent with neurogenic bladder. Still making good urine output Objective - Vital Signs Vital signs: Vital Signs Temp 97.6 F 08/20/23 11:47 Pulse 62 08/20/23 11:47 Resp 18 08/20/23 11:47 BP 155/82 08/20/23 11:47 Pulse Ox 99 08/20/23 11:47 FiO2 Intake & Output 08/19/23 08/20/23 08/20/23 18:59 06:59 18:59 Intake Total 837 598 Output Total 2125 1800 800 Balance -1288 -1800 -202 Weight 77.111 kg Intake: Oral 837 598 Output: Urine 1575 1800 800 Uretheral (Alcala) 550 500 Other 550 Other: Voiding Method Indwelling Catheter Indwelling Catheter Indwelling Catheter # Bowel Movements 1 - Constitutional General appearance: Present: no acute distress - Gastrointestinal General gastrointestinal: Present: soft. Absent: distended, tenderness - Labs CBC & Chem 7: 08/19/23 07:39 08/20/23 06:28 Labs: Abnormal Lab Results - Last 24 Hours (Table) 08/19/23 08/19/23 08/20/23 Range/Units 16:21 19:36 05:50 Potassium (3.5-5.1) mmol/L BUN (9-20) mg/dL Creatinine (0.66-1.25) mg/dL Glucose (74-99) mg/dL POC Glucose (mg/dL) 201 H 221 H 230 H (70-110) mg/dL Calcium (8.4-10.2) mg/dL 08/20/23 08/20/23 08/20/23 Range/Units 06:28 08:52 11:23 Potassium 3.3 L (3.5-5.1) mmol/L BUN 130 H* (9-20) mg/dL Creatinine 6.94 H (0.66-1.25) mg/dL Glucose 217 H (74-99) mg/dL POC Glucose (mg/dL) 263 H 216 H (70-110) mg/dL Calcium 7.4 L (8.4-10.2) mg/dL Assessment and Plan Assessment: 77-year-old male admitted to the hospital with acute kidney injury renal ultrasound showed evidence of bilateral hydronephrosis, patient was in 2.6 L urinary retention and bilateral hydronephrosis most likely secondary to his urinary retention and bladder distention.underwent a CT this morning, which show ed dilated ureter down to the bladder. On review of imaging consistent with neurogenic bladder. Given this finding is unlikely to benefit from ureteral stents as this is chronic dilation from prolonged urinary retention. I don't see any evidence of obstructive lymphadenopathy, or ureteral stone
--- NOTE | 2023-08-20 15:01 | P.PN ---
Progress Note - Text Progress Note Date: 08/20/23 Chief Complaint: Worsening renal function This is a pleasant 77-year-old patient follows with Dr. Machuca. Patient has known diabetes, hypertension, chronic kidney disease. Patient was sent in yesterday to [facility] with elevated BUN/creatinine. Patient is given 2 L of normal saline then left AMA because his is bedbound. In February of this year patient's creatinine was 2.4 BUN 54. Yesterday it was 139/8.8. Patient had a Alcala catheter placed yesterday. Appetite is okay.. Tired. No nausea vomiting. August 19: IV sodium bicarbonate drip because of metabolic acidosis. Eating well. Tired. Up in a chair. August 20: Remains on IV sodium bicarbonate drip. This will drop in creatinine to 6.94. Good urine output. Eating well. Up in a chair. Active Medications Acetaminophen (Acetaminophen Tab 325 Mg Tab) 650 mg PO Q6HR PRN PRN Reason: Mild Pain or Fever > 100.5 Amlodipine Besylate (Amlodipine 5 Mg Tab) 5 mg PO HS [facility] Last Admin: 08/19/23 19:54 Dose: 5 mg Apixaban (Apixaban 2.5 Mg Tablet) 2.5 mg PO BID [facility]; Protocol Last Admin: 08/20/23 10:38 Dose: 2.5 mg Atenolol (Atenolol 50 Mg Tab) 50 mg PO DAILY [facility] Last Admin: 08/20/23 08:55 Dose: 50 mg Dextrose/Water (Dextrose 50% Syringe 50 Ml) 25 ml IVP PER PROTOCOL PRN; Protocol PRN Reason: Hypoglycemia Dextrose/Water (Dextrose 50% Syringe 50 Ml) 50 ml IVP PER PROTOCOL PRN; Protocol PRN Reason: Hypoglycemia Sodium Bicarbonate 100 ml/ (Dextrose/Water) 1,100 mls @ 100 mls/hr IV .Q11H [facility] Last Admin: 08/19/23 20:44 Dose: 100 mls/hr Insulin Aspart (Insulin Aspart (Novolog) 100 Unit/Ml Vial) 0 unit SQ AC-TID [facility]; Protocol Last Admin: 08/20/23 12:31 Dose: 4 unit Insulin Detemir (Insulin Detemir (Levemir) 100 Unit/Ml Syr) 30 unit SQ DAILY [facility] Last Admin: 08/20/23 08:53 Dose: 30 unit Magnesium Oxide (Magnesium Oxide 400 Mg Tab) 200 mg PO BID [facility] Last Admin: 08/20/23 08:53 Dose: 200 mg Naloxone HCl (Naloxone 0.4 Mg/Ml 1 Ml Vial) 0.2 mg IV Q2M PRN PRN Reason: Opioid Reversal Past medical history to include: Diabetes, hypertension, chronic kidney disease Social history: . No smoking or alcohol. 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 Physical examination: VITAL SIGNS: 97.6, 62, 18, 155/82, 99% room air GENERAL: sitting up in chair, EYES: Pupils equal. Conjunctiva normal. HEENT: External appearance of nose and ears normal, oral cavity grossly normal. NECK: JVD not raised; masses not palpable. HEART: First and second heart sounds are normal; no edema. LUNGS: Respiratory rate normal; clear to auscultation. ABDOMEN: Soft, nontender, liver spleen not palpable, no masses palpable. . Alcala catheter PSYCH: Alert and oriented x3; mood and affect normal. MUSCULOSKELETAL:No Clubbing/cyanosis;muscles-grossly intact. OA INVESTIGATIONS, reviewed in the clinical context: August 20: Potassium 3.3 BUN 1:30 creatinine 6.94 TSH 0.888 August 19: White count 9.4 hemoglobin 10.6 platelets 17474 BUN 132 creatinine 7.47 magnesium 1.2 August 18: BUN 131 creatinine 8.17 bicarb 14 August 17: White count 6.9 hemoglobin 11.2 platelets and 15 sodium 140 bicarbonate 16 BUN 133 creatinine 8.0 glucose 208 EKG tracing personally reviewed by me-normal sinus rhythm. Left anterior fascicular block. LVH. Assessment and plan: -Acute on chronic kidney disease: Slow to respond Nephrology consult. Strict I's and O's. IV bicarbonate drip Follow renal function closely -Metabolic acidosis secondary to renal failure: IV sodium bicarbonate drip -Essential hypertension, with chronic kidney disease: Better Atenolol 50 mg day. amlodipine 5 mg daily at bedtime -Diabetes mellitus type 2, chronically on insulin, uncontrolled with hyperglycemia Increase Levemir 34 units. Had NovoLog 6 units before meals 3 times a day Follow sliding scale with Accu-Cheks -Chronic kidney disease likely nephrosclerosis and diabetic nephropathy. creatinine was 2.1 in February 2023 -Primary osteoarthritis Tylenol as needed -Full code Continue IV bicarbonate drip. Adjust insulin. Follow with nephrology. Past Medical History Past Medical History: Diabetes Mellitus, Hypertension Past Surgical History: No Surgical Hx Reported Past Psychological History: No Psychological Hx Reported Smoking Status: Never smoker Past Alcohol Use History: None Reported Past Drug Use History: None Reported
[2023-08-20 16:30] LABS: Glucose,Whole Blood 154 mg/dL (70-110)
[2023-08-20 19:35] LABS: Glucose,Whole Blood 95 mg/dL (70-110)
[2023-08-20] MEDS: amLODIPine 5 MG TAB PO SCH (20:41)
[2023-08-21 06:30] LABS: Glucose,Whole Blood 216 mg/dL (70-110)
[2023-08-21] MEDS: INSULIN ASPART (NovoLOG) 100 UNIT/ML VIAL SQ SCH ×6 (06:35→17:05)
[2023-08-21] MEDS: INSULIN DETEMIR (LEVEMIR) 100 UNIT/ML SYR SQ SCH (06:35)
[2023-08-21 07:21] LABS: African American GFR (CKD) 10 (>60 ml/min/1.73 sqM); Anion Gap 11 mmol/L; Carbon Dioxide 33 mmol/L (22-30); Chloride 94 mmol/L (98-107); Glucose 162 mg/dL (74-99); Non-African American GFR(CKD) 8 (>60 ml/min/1.73 sqM); Potassium 3.1 mmol/L (3.5-5.1); Sodium 138 mmol/L (137-145)
[2023-08-21 07:26] LABS: Blood Urea Nitrogen 117 mg/dL (9-20)
[2023-08-21] MEDS: MAGNESIUM OXIDE 400 MG TAB PO SCH ×2 (08:46→21:14)
[2023-08-21] MEDS: APIXABAN 2.5 MG TABLET PO SCH ×2 (08:47→21:14)
[2023-08-21 11:35] LABS: Glucose,Whole Blood 115 mg/dL (70-110)
--- NOTE | 2023-08-21 12:07 | CA ---
Transthoracic Echo Report Name: Tucker Brenner Age: 77 Gender: M : 1945 Exam Date: 08/20/2023 13:33 Exam Location: [facility] Ht (in): 67 Wt (lb): 170 Ordering Physician: Rosie Romo Attending/Referring Phys: [id number], Demetrius Cut Plug Packer Procedure CPT: Indications: LVF Cardiac Hx: Technical Quality: Technically difficult study Contrast 1: Lumason Total Dose (mL): 4 Contrast 2: Total Dose (mL): MEASUREMENTS (Male / Female) Normal Values 2D ECHO LV Diastolic Diameter PLAX 4.3 cm 4.2 - 5.9 / 3.9 - 5.3 cm LV Systolic Diameter PLAX 3.3 cm IVS Diastolic Thickness 1.5 cm 0.6 - 1.0 / 0.6 - 0.9 cm LVPW Diastolic Thickness 1.5 cm 0.6 - 1.0 / 0.6 - 0.9 cm LV Relative Wall Thickness 0.7 RV Internal Dim ED PLAX 3.2 cm LA Volume 62.5 cm??? 18 - 58 / 22 - 52 cm??? M-MODE Aortic Root Diameter MM 3.5 cm LA Systolic Diameter MM 3.5 cm LA Ao Ratio MM 1.0 AV Cusp Separation MM 1.0 cm DOPPLER AV Peak Velocity 372.6 cm/s AV Peak Gradient 55.5 mmHg AV Mean Velocity 262.5 cm/s AV Mean Gradient 29.8 mmHg AV Velocity Time Integral 63.8 cm AI Peak Velocity 422.6 cm/s AI Peak Gradient 71.4 mmHg AI Pressure Half Time 663.0 ms LVOT Peak Velocity 101.2 cm/s LVOT Peak Gradient 4.1 mmHg LVOT Velocity Time Integral 18.8 cm MV Area PHT 2.7 cm??? Mitral E Point Velocity 58.6 cm/s Mitral A Point Velocity 95.8 cm/s Mitral E to A Ratio 0.6 MV Deceleration Time 278.2 ms MV E' Velocity 3.2 cm/s Mitral E to MV E' Ratio 18.2 FINDINGS Left Ventricle Moderately increased left ventricular wall thickness. Left ventricular cavity size normal. Normal left ventricular systolic function with no obvious regional wall motion abnormalities. Left ventricular ejection fraction is estimated at 55 %. Right Ventricle Normal right ventricular size and function. Right ventricular systolic pressure within normal limits. Right Atrium Normal right atrial size. 56 Left Atrium Mildly increased left atrial volume. Mildly increased left atrial area. Mitral Valve Structurally normal mitral valve. Mild mitral regurgitation. Aortic Valve Moderate aortic stenosis with a peak gradient of 56 mmHg and a mean gradient of 30 mmHg. Mild aortic regurgitation. Tricuspid Valve Structurally normal tricuspid valve. Mild tricuspid regurgitation. Pulmonic Valve Structurally normal pulmonic valve. Pericardium No pericardial effusion. Aorta Normal size aortic root and proximal ascending aorta. CONCLUSIONS Calcific aortic stenosis with moderate to severe stenosis LVH with preserved systolic function Previewed by: Dr. Johnny Bronson MD (Electronically Signed) Final Date: 21 August 2023 12:06
--- NOTE | 2023-08-21 12:28 | P.PN ---
Subjective Progress Note Date: 08/21/23 This is Julio Brown NP, I'm dictating on behalf of Dr. Bronson's H&P and A&P. Patient was interviewed and examined. Patient is a pleasant 77-year-old male with no previously noted cardiac history who presented to the hospital with new onset atrial fibrillation. Patient does have history of diabetes and hypertension. Patient was found to be in acute kidney injury with obstructive uropathy post-Alcala catheter placement. Today patient reports that he is feeling fine. Patient converted back to normal sinus rhythm just after admission, and has remained in normal sinus rhythm since. Patient was started on Eliquis yesterday, and is tolerating this well. GENERAL: Well-appearing, well-nourished and in no acute distress. NECK: Supple without JVD or thyromegaly. LUNGS: Breath sounds clear to auscultation bilaterally. Respiration equal and unlabored. No wheezes, rales or rhonchi. HEART: Regular rate and rhythm without murmurs, rubs or gallops. S1 and S2 heard. EXTREMITIES: Normal range of motion, no edema. No clubbing or cyanosis. Peripheral pulses intact and strong. VITALS: Temp 97.7, pulse 70, respirations 18, blood pressure 96/59, O2 saturation 99% on room air TELEMETRY: Normal sinus rhythm LABS: Sodium 138, potassium 3.1, BUN 117, creatinine 5.97 IMPRESSION: 1. Acute kidney injury 2. New onset atrial fibrillation with rapid ventricular response, paroxysmal, currently in sinus rhythm 3. Hypertension 4. Diabetes PLAN: Patient's echocardiogram read is pending. Kidney function is improving. Patient's blood pressure is okay today. If patient's echocardiogram is relatively normal, the patient could be discharged from a cardiology standpoint. Continue atenolol 50 g daily. Continue Alquist 2.5 mg twice a day. Thank you for allowing us to participate in the care of this patient. Objective - Vital Signs Vital signs: Vital Signs Temp 97.7 F 08/21/23 08:00 Pulse 70 08/21/23 08:00 Resp 18 08/21/23 08:00 BP 96/59 08/21/23 08:00 Pulse Ox 99 08/21/23 08:00 FiO2 Intake & Output 08/20/23 08/21/23 08/21/23 18:59 06:59 18:59 Intake Total 838 80 180 Output Total 800 1500 Balance 38 -1420 180 Intake: Oral 838 80 180 Output: Urine 800 1500 Other: Voiding Method Indwelling Catheter Indwelling Catheter Indwelling Catheter # Voids 1 1 - Labs CBC & Chem 7: 08/19/23 07:39 08/21/23 05:28 Labs: Abnormal Lab Results - Last 24 Hours (Table) 08/20/23 08/21/23 08/21/23 Range/Units 16:29 05:28 06:29 Potassium 3.1 L (3.5-5.1) mmol/L Chloride 94 L (98-107) mmol/L Carbon Dioxide 33 H (22-30) mmol/L BUN 117 H* (9-20) mg/dL Creatinine 5.97 H (0.66-1.25) mg/dL Glucose 162 H (74-99) mg/dL POC Glucose (mg/dL) 154 H 216 H (70-110) mg/dL Calcium 7.0 L (8.4-10.2) mg/dL 08/21/23 Range/Units 11:34 Potassium (3.5-5.1) mmol/L Chloride (98-107) mmol/L Carbon Dioxide (22-30) mmol/L BUN (9-20) mg/dL Creatinine (0.66-1.25) mg/dL Glucose (74-99) mg/dL POC Glucose (mg/dL) 115 H (70-110) mg/dL Calcium (8.4-10.2) mg/dL
[2023-08-21] MEDS: atenoloL 50 MG TAB PO SCH (15:20)
[2023-08-21] MEDS ORDERED: POTASSIUM CHLORIDE ER 20 MEQ TAB.ER PO STA (15:45)
--- NOTE | 2023-08-21 15:50 | P.PN ---
Subjective Progress Note Date: 08/21/23 Follow-up for acute kidney injury. Good urine output. 2.3 L in the last 24 hours. No nausea vomiting diarrhea. Objective - Vital Signs Vital signs: Vital Signs Temp 97.6 F 08/21/23 12:00 Pulse 71 08/21/23 14:00 Resp 18 08/21/23 14:00 BP 96/66 08/21/23 12:00 Pulse Ox 99 08/21/23 12:00 FiO2 Intake & Output 08/20/23 08/21/23 08/21/23 18:59 06:59 18:59 Intake Total 838 80 360 Output Total 800 1500 Balance 38 -1420 360 Intake: Oral 838 80 360 Output: Urine 800 1500 Other: Voiding Method Indwelling Catheter Indwelling Catheter Indwelling Catheter # Voids 1 # Bowel Movements 1 - Exam No acute distress. S1-S2 heard Lungs clear Abdomen soft Alcala Trace edema - Labs CBC & Chem 7: 08/19/23 07:39 08/21/23 05:28 Labs: Abnormal Lab Results - Last 24 Hours (Table) 08/20/23 08/21/23 08/21/23 Range/Units 16:29 05:28 06:29 Potassium 3.1 L (3.5-5.1) mmol/L Chloride 94 L (98-107) mmol/L Carbon Dioxide 33 H (22-30) mmol/L BUN 117 H* (9-20) mg/dL Creatinine 5.97 H (0.66-1.25) mg/dL Glucose 162 H (74-99) mg/dL POC Glucose (mg/dL) 154 H 216 H (70-110) mg/dL Calcium 7.0 L (8.4-10.2) mg/dL 08/21/23 Range/Units 11:34 Potassium (3.5-5.1) mmol/L Chloride (98-107) mmol/L Carbon Dioxide (22-30) mmol/L BUN (9-20) mg/dL Creatinine (0.66-1.25) mg/dL Glucose (74-99) mg/dL POC Glucose (mg/dL) 115 H (70-110) mg/dL Calcium (8.4-10.2) mg/dL Assessment and Plan Assessment: #1 acute kidney injury secondary to obstructive uropathy with urinary retention -Renal ultrasound bilateral hydronephrosis -Baseline creatinine unknown. Admission creatinine 8.0 MG per DL. #2 metabolic alkalosis secondary to bicarb drip #3 Type 2 diabetes. #4 hypertension with chronic kidney disease #5 suspected CK D #6 hypokalemia secondary to bicarbonate drip. Plan: #1 renal function improving. #2 discontinue bicarb drip #3 replace KCl #4 monitor renal function closely. No acute indication for dialysis at this time.
[2023-08-21 16:43] LABS: Glucose,Whole Blood 156 mg/dL (70-110)
[2023-08-21] MEDS: DEXTROSE 5% IN WATER 1,000 ML with SODIUM BICARB (1 MEQ/ML) 100 ML IV SCH (17:08)
--- NOTE | 2023-08-21 18:56 | P.PN ---
Progress Note - Text Progress Note Date: 08/21/23 Chief Complaint: Worsening renal function This is a pleasant 77-year-old patient follows with Dr. Machuca. Patient has known diabetes, hypertension, chronic kidney disease. Patient was sent in yesterday to [facility] with elevated BUN/creatinine. Patient is given 2 L of normal saline then left AMA because his is bedbound. In February of this year patient's creatinine was 2.4 BUN 54. Yesterday it was 139/8.8. Patient had a Alcala catheter placed yesterday. Appetite is okay.. Tired. No nausea vomiting. August 19: IV sodium bicarbonate drip because of metabolic acidosis. Eating well. Tired. Up in a chair. August 20: Remains on IV sodium bicarbonate drip. This will drop in creatinine to 6.94. Good urine output. Eating well. Up in a chair. August 21: Patient has bilateral hydronephrosis with the area does not itch her daughter the bladder. Superior a neurogenic bladder. Being followed by urology. Discontinued- IV bicarbonate drip. Good urine output. Slow improvement in creatinine. Oral intake good. Up in a chair. Active Medications Acetaminophen (Acetaminophen Tab 325 Mg Tab) 650 mg PO Q6HR PRN PRN Reason: Mild Pain or Fever > 100.5 Amlodipine Besylate (Amlodipine 5 Mg Tab) 5 mg PO HS [facility] Last Admin: 08/20/23 20:41 Dose: 5 mg Apixaban (Apixaban 2.5 Mg Tablet) 2.5 mg PO BID [facility]; Protocol Last Admin: 08/21/23 08:47 Dose: 2.5 mg Dextrose/Water (Dextrose 50% Syringe 50 Ml) 25 ml IVP PER PROTOCOL PRN; Protocol PRN Reason: Hypoglycemia Dextrose/Water (Dextrose 50% Syringe 50 Ml) 50 ml IVP PER PROTOCOL PRN; Protocol PRN Reason: Hypoglycemia Insulin Aspart (Insulin Aspart (Novolog) 100 Unit/Ml Vial) 0 unit SQ AC-TID [facility]; Protocol Last Admin: 08/21/23 17:05 Dose: 2 unit Insulin Aspart (Insulin Aspart (Novolog) 100 Unit/Ml Vial) 6 unit SQ AC-TID [facility] Last Admin: 08/21/23 17:05 Dose: 6 unit Insulin Detemir (Insulin Detemir (Levemir) 100 Unit/Ml Syr) 34 unit SQ DAILY@0700 [facility] Last Admin: 08/21/23 06:35 Dose: 34 unit Magnesium Oxide (Magnesium Oxide 400 Mg Tab) 200 mg PO BID [facility] Last Admin: 08/21/23 08:46 Dose: 200 mg Naloxone HCl (Naloxone 0.4 Mg/Ml 1 Ml Vial) 0.2 mg IV Q2M PRN PRN Reason: Opioid Reversal Past medical history to include: Diabetes, hypertension, chronic kidney disease Social history: . No smoking or alcohol. 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 Physical examination: VITAL SIGNS: 97.6, 71, 18, 96/66, 99% room air GENERAL: sitting up in chair, EYES: Pupils equal. Conjunctiva normal. HEENT: External appearance of nose and ears normal, oral cavity grossly normal. NECK: JVD not raised; masses not palpable. HEART: First and second heart sounds are normal; no edema. LUNGS: Respiratory rate normal; clear to auscultation. ABDOMEN: Soft, nontender, liver spleen not palpable, no masses palpable. . Alcala catheter PSYCH: Alert and oriented x3; mood and affect normal. MUSCULOSKELETAL:No Clubbing/cyanosis;muscles-grossly intact. OA INVESTIGATIONS, reviewed in the clinical context: August 21: Potassium 3.1 BUN 117 creatinine 5.97 August 20: Potassium 3.3 BUN 1:30 creatinine 6.94 TSH 0.888 Computed tomography scan abdomen and pelvis: Moderate to severe hydroureteronephrosis that he took a markedly thickened urinary bladder wall. Renal ultrasound: Prominent hydronephrosis bilateral kidney. Septated cyst bilateral right kidney. August 19: White count 9.4 hemoglobin 10.6 platelets 27742 BUN 132 creatinine 7.47 magnesium 1.2 August 18: BUN 131 creatinine 8.17 bicarb 14 August 17: White count 6.9 hemoglobin 11.2 platelets and 15 sodium 140 bicarbonate 16 BUN 133 creatinine 8.0 glucose 208 EKG tracing personally reviewed by me-normal sinus rhythm. Left anterior fascicular block. LVH. Assessment and plan: -Acute on chronic kidney disease: Slow to respond Nephrology consult. Strict I's and O's. IV bicarbonate drip Follow renal function closely -Metabolic acidosis secondary to renal failure: Improved IV sodium bicarbonate discontinued -Bilateral [place] nephrosis with hydroureter. Neurogenic bladder. Alcala catheter. Follow with urology. -Essential hypertension, with chronic kidney disease: Better Atenolol 50 mg day. Cutback amlodipine 2.5 mg daily at bedtime -Diabetes mellitus type 2, chronically on insulin, uncontrolled with hyperglycemia Levemir 34 units. NovoLog 6 units before meals 3 times a day Follow sliding scale with Accu-Cheks -Chronic kidney disease likely nephrosclerosis and diabetic nephropathy. creatinine was 2.1 in February 2023 -Primary osteoarthritis Tylenol as needed -Full code Stopped IV bicarbonate drip. Follow with nephrology. Cutback amlodipine to 2.5 mg daily at bedtime. Past Medical History Past Medical History: Diabetes Mellitus, Hypertension Past Surgical History: No Surgical Hx Reported Past Psychological History: No Psychological Hx Reported Smoking Status: Never smoker Past Alcohol Use History: None Reported Past Drug Use History: None Reported
[2023-08-21 19:26] LABS: Glucose,Whole Blood 99 mg/dL (70-110)
[2023-08-21] MEDS ORDERED: amLODIPine 2.5 MG TAB PO SCH (21:00)
[2023-08-22 06:17] LABS: Glucose,Whole Blood 134 mg/dL (70-110)
[2023-08-22] MEDS: INSULIN ASPART (NovoLOG) 100 UNIT/ML VIAL SQ SCH ×6 (06:20→17:26)
[2023-08-22] MEDS: INSULIN DETEMIR (LEVEMIR) 100 UNIT/ML SYR SQ SCH (06:21)
[2023-08-22 08:46] LABS: African American GFR (CKD) 11 (>60 ml/min/1.73 sqM); Anion Gap 10 mmol/L; Calcium 7.2 mg/dL (8.4-10.2); Carbon Dioxide 32 mmol/L (22-30); Chloride 98 mmol/L (98-107); Glucose 118 mg/dL (74-99); Non-African American GFR(CKD) 9 (>60 ml/min/1.73 sqM); Potassium 3.7 mmol/L (3.5-5.1); Sodium 140 mmol/L (137-145)
[2023-08-22 08:47] LABS: Blood Urea Nitrogen 118 mg/dL (9-20)
[2023-08-22] MEDS: MAGNESIUM OXIDE 400 MG TAB PO SCH ×2 (09:18→19:46)
[2023-08-22] MEDS: APIXABAN 2.5 MG TABLET PO SCH ×2 (09:18→19:46)
[2023-08-22 11:35] LABS: Glucose,Whole Blood 180 mg/dL (70-110)
--- NOTE | 2023-08-22 14:44 | P.PN ---
Subjective Progress Note Date: 08/22/23 Follow-up for acute kidney injury. Good urine output. 2.0 L in the last 24 hours. No nausea vomiting diarrhea. Objective - Vital Signs Vital signs: Vital Signs Temp 98.5 F 08/22/23 12:00 Pulse 72 08/22/23 13:57 Resp 18 08/22/23 13:57 BP 125/65 08/22/23 12:00 Pulse Ox 100 08/22/23 12:00 FiO2 Intake & Output 08/21/23 08/22/23 08/22/23 18:59 06:59 18:59 Intake Total 360 480 Output Total 600 1480 800 Balance -240 -1480 -320 Intake: Oral 360 480 Output: Urine 600 1480 800 Uretheral (Alcala) 600 Other: Voiding Method Indwelling Catheter Indwelling Catheter Indwelling Catheter # Bowel Movements 1 - Exam No acute distress. S1-S2 heard Lungs clear Abdomen soft Alcala Trace edema - Labs CBC & Chem 7: 08/19/23 07:39 08/22/23 07:54 Labs: Abnormal Lab Results - Last 24 Hours (Table) 08/21/23 08/22/23 08/22/23 Range/Units 16:40 06:16 07:54 Carbon Dioxide 32 H (22-30) mmol/L BUN 118 H* (9-20) mg/dL Creatinine 5.45 H (0.66-1.25) mg/dL Glucose 118 H (74-99) mg/dL POC Glucose (mg/dL) 156 H 134 H (70-110) mg/dL Calcium 7.2 L (8.4-10.2) mg/dL 08/22/23 Range/Units 11:34 Carbon Dioxide (22-30) mmol/L BUN (9-20) mg/dL Creatinine (0.66-1.25) mg/dL Glucose (74-99) mg/dL POC Glucose (mg/dL) 180 H (70-110) mg/dL Calcium (8.4-10.2) mg/dL Assessment and Plan Assessment: #1 acute kidney injury secondary to obstructive uropathy with urinary retention -Renal ultrasound bilateral hydronephrosis -Baseline creatinine unknown. Admission creatinine 8.0 MG per DL. #2 metabolic alkalosis secondary to bicarb drip #3 Type 2 diabetes. #4 hypertension with chronic kidney disease #5 suspected CK D #6 hypokalemia secondary to bicarbonate drip. Plan: #1 renal function improving. #2 replace KCl #3 monitor renal function closely. No acute indication for dialysis at this time.
[2023-08-22 16:15] LABS: Glucose,Whole Blood 121 mg/dL (70-110)
--- NOTE | 2023-08-22 18:27 | P.PN ---
Progress Note - Text Progress Note Date: 08/22/23 Chief Complaint: Worsening renal function This is a pleasant 77-year-old patient follows with Dr. Machuca. Patient has known diabetes, hypertension, chronic kidney disease. Patient was sent in yesterday to [facility] [place] with elevated BUN/creatinine. Patient is given 2 L of normal saline then left AMA because his is bedbound. In February of this year patient's creatinine was 2.4 BUN 54. Yesterday it was 139/8.8. Patient had a Alcala catheter placed yesterday. Appetite is okay.. Tired. No nausea vomiting. August 19: IV sodium bicarbonate drip because of metabolic acidosis. Eating well. Tired. Up in a chair. August 20: Remains on IV sodium bicarbonate drip. This will drop in creatinine to 6.94. Good urine output. Eating well. Up in a chair. August 21: Patient has bilateral hydronephrosis with the area does not itch her daughter the bladder. [place] a neurogenic bladder. Being followed by urology. Discontinued- IV bicarbonate drip. Good urine output. Slow improvement in creatinine. Oral intake good. Up in a chair. August 22: Patient has a grandson visiting him. Eating well. Good urine output. Significant negative fluid balance. Start the patient on 75 mL of half saline. Per nephrology. Ureter dilatation felt to be chronic from neurogenic bladder.-Unlikely any benefit from ureter stent. Patient started on eliquis yesterday for his paroxysmal atrial fibrillation. Patient remained in sinus rhythm. Active Medications Acetaminophen (Acetaminophen Tab 325 Mg Tab) 650 mg PO Q6HR PRN PRN Reason: Mild Pain or Fever > 100.5 Amlodipine Besylate (Amlodipine 2.5 Mg Tab) 2.5 mg PO [facility] Last Admin: 08/21/23 21:14 Dose: 2.5 mg Apixaban (Apixaban 2.5 Mg Tablet) 2.5 mg PO BID [facility]; Protocol Last Admin: 08/22/23 09:18 Dose: 2.5 mg Dextrose/Water (Dextrose 50% Syringe 50 Ml) 25 ml IVP PER PROTOCOL PRN; Protocol PRN Reason: Hypoglycemia Dextrose/Water (Dextrose 50% Syringe 50 Ml) 50 ml IVP PER PROTOCOL PRN; Protocol PRN Reason: Hypoglycemia Sodium Chloride (Saline 0.45%) 1,000 mls @ 75 mls/hr IV .[id number] [facility] Insulin Aspart (Insulin Aspart (Novolog) 100 Unit/Ml Vial) 0 unit SQ AC-TID [facility]; Protocol Last Admin: 08/22/23 16:29 Dose: Not Given Insulin Aspart (Insulin Aspart (Novolog) 100 Unit/Ml Vial) 6 unit SQ AC-TID [facility] Last Admin: 08/22/23 17:26 Dose: 6 unit Insulin Detemir (Insulin Detemir (Levemir) 100 Unit/Ml Syr) 34 unit SQ DAILY@0700 [facility] Last Admin: 08/22/23 06:21 Dose: 34 unit Magnesium Oxide (Magnesium Oxide 400 Mg Tab) 200 mg PO BID [facility] Last Admin: 08/22/23 09:18 Dose: 200 mg Naloxone HCl (Naloxone 0.4 Mg/Ml 1 Ml Vial) 0.2 mg IV Q2M PRN PRN Reason: Opioid Reversal Past medical history to include: Diabetes, hypertension, chronic kidney disease Social history: . No smoking or alcohol. 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 Physical examination: VITAL SIGNS: 98.5, 72, 18, 1 25 x 65, 100% room air GENERAL: Reclining in bed, comfortable EYES: Pupils equal. Conjunctiva normal. HEENT: External appearance of nose and ears normal, oral cavity grossly normal. NECK: JVD not raised; masses not palpable. HEART: First and second heart sounds are normal; no edema. LUNGS: Respiratory rate normal; clear to auscultation. ABDOMEN: Soft, nontender, liver spleen not palpable, no masses palpable. . Alcala catheter PSYCH: Alert and oriented x3; mood and affect normal. MUSCULOSKELETAL:No Clubbing/cyanosis;muscles-grossly intact. OA INVESTIGATIONS, reviewed in the clinical context: August 22: Potassium 3.7 BUN 118 creatinine 5.45 August 21: Potassium 3.1 BUN 117 creatinine 5.97 August 20: Potassium 3.3 BUN 1:30 creatinine 6.94 TSH 0.888 Computed tomography scan abdomen and pelvis: Moderate to severe hydroureteronephrosis that he took a markedly thickened urinary bladder wall. Renal ultrasound: Prominent hydronephrosis bilateral kidney. Septated cyst bilateral right kidney. August 19: White count 9.4 hemoglobin 10.6 platelets 00557 BUN 132 creatinine 7.47 magnesium 1.2 August 18: BUN 131 creatinine 8.17 bicarb 14 Maren 26: White count 6.9 hemoglobin 11.2 platelets and 15 sodium 140 bicarbonate 16 BUN 133 creatinine 8.0 glucose 208 EKG tracing personally reviewed by me-normal sinus rhythm. Left anterior fascicular block. LVH. Assessment and plan: -Acute on chronic kidney disease: Slow to respond Nephrology consult. Strict I's and O's. IV bicarbonate drip-discontinued Half saline 75 mL an hour. Follow renal function closely -Metabolic acidosis secondary to renal failure: Improved IV sodium bicarbonate discontinued -Bilateral [place] nephrosis with hydroureter. Secondary to Neurogenic bladder. Plan urology: Ureter stents not felt to be beneficial at this is felt to be chronic. Alcala catheter. Follow with urology. -Essential hypertension, with chronic kidney disease: Better Stop amlodipine. Lopressor 25 mg twice a day-start tomorrow -Paroxysmal atrial fibrillation with rapid ventricular rate on presentation. Has been back in sinus rhythm since presentation. Lopressor 25 mg twice a day -Diabetes mellitus type 2, chronically on insulin, uncontrolled with hyperglycemia Levemir 34 units. NovoLog 6 units before meals 3 times a day Follow sliding scale with Accu-Cheks -Chronic kidney disease likely nephrosclerosis and diabetic nephropathy. creatinine was 2.1 in February 2023 -Primary osteoarthritis Tylenol as needed -Full code Stopped IV bicarbonate drip. Follow with nephrology. Cutback amlodipine to 2.5 mg daily at bedtime. Past Medical History Past Medical History: Diabetes Mellitus, Hypertension Past Surgical History: No Surgical Hx Reported Past Psychological History: No Psychological Hx Reported Smoking Status: Never smoker Past Alcohol Use History: None Reported Past Drug Use History: None Reported
[2023-08-22] MEDS: SODIUM CHLORIDE 0.45% 1,000 ML IV SCH (18:55)
[2023-08-22 20:35] LABS: Glucose,Whole Blood 84 mg/dL (70-110)
[2023-08-23 06:02] LABS: Glucose,Whole Blood 170 mg/dL (70-110)
[2023-08-23] MEDS: INSULIN ASPART (NovoLOG) 100 UNIT/ML VIAL SQ SCH ×6 (06:04→18:09)
[2023-08-23] MEDS: INSULIN DETEMIR (LEVEMIR) 100 UNIT/ML SYR SQ SCH (06:04)
[2023-08-23 08:12] LABS: African American GFR (CKD) 13 (>60 ml/min/1.73 sqM); Anion Gap 11 mmol/L; Calcium 7.3 mg/dL (8.4-10.2); Carbon Dioxide 26 mmol/L (22-30); Chloride 100 mmol/L (98-107); Glucose 121 mg/dL (74-99); Non-African American GFR(CKD) 11 (>60 ml/min/1.73 sqM); Potassium 3.5 mmol/L (3.5-5.1); Sodium 137 mmol/L (137-145)
[2023-08-23 08:16] LABS: Blood Urea Nitrogen 118 mg/dL (9-20)
[2023-08-23] MEDS: APIXABAN 2.5 MG TABLET PO SCH ×2 (08:35→20:30)
[2023-08-23] MEDS: MAGNESIUM OXIDE 400 MG TAB PO SCH ×3 (08:35→20:30)
[2023-08-23] MEDS ORDERED: METOPROLOL TARTRATE 25 MG TAB PO SCH (09:00)
[2023-08-23] MEDS ORDERED: POTASSIUM CHLORIDE ER 20 MEQ TAB.ER PO STA (10:44)
[2023-08-23] MEDS ORDERED: SODIUM CHLORIDE 0.9% 500 ML 500 ML IV ONE (11:00)
--- NOTE | 2023-08-23 11:01 | P.PN ---
Subjective Patient is seen in follow for acute kidney injury. Renal function improving. Nonoliguric. Oral intake is good. Wants to go home. Vital signs are stable. General: No acute distress. HEENT: Head exam is unremarkable. LUNGS: No audible rhonchi or wheezes. HEART: Rate and Rhythm are regular. ABDOMEN: Nontender. EXTREMITITES: No edema. Objective - Vital Signs Vital signs: Vital Signs Temp 97.4 F L 08/23/23 08:40 Pulse 82 08/23/23 08:40 Resp 18 08/23/23 08:40 BP 82/54 08/23/23 08:40 Pulse Ox 97 08/23/23 08:40 FiO2 Intake & Output 08/22/23 08/23/23 08/23/23 18:59 06:59 18:59 Intake Total 660 Output Total 1400 1200 Balance -740 -1200 Intake: Oral 660 Output: Urine 1400 1200 Uretheral (Alcala) 250 Other: Voiding Method Indwelling Catheter Indwelling Catheter # Bowel Movements 1 - Labs CBC & Chem 7: 08/19/23 07:39 08/23/23 07:14 Labs: Abnormal Lab Results - Last 24 Hours (Table) 08/22/23 08/22/23 08/23/23 Range/Units 11:34 16:13 06:01 BUN (9-20) mg/dL Creatinine (0.66-1.25) mg/dL Glucose (74-99) mg/dL POC Glucose (mg/dL) 180 H 121 H 170 H (70-110) mg/dL Calcium (8.4-10.2) mg/dL 08/23/23 Range/Units 07:14 BUN 118 H* (9-20) mg/dL Creatinine 4.72 H (0.66-1.25) mg/dL Glucose 121 H (74-99) mg/dL POC Glucose (mg/dL) (70-110) mg/dL Calcium 7.3 L (8.4-10.2) mg/dL Assessment and Plan Plan: Assessment: 1. Acute kidney injury secondary to obstructive uropathy with ultrasound sh owing bilateral hydronephrosis. Also with urinary retention. Has Alcala catheter. Urology following. Creatinine 8 on admission and is 4.7 today. Nonoliguric. Unknown baseline renal function. 2. Hypokalemia from postobstructive diuresis. Being replaced. Rule out magnesium deficiency. 3. Diabetes mellitus. Plan: Change IV fluids from half normal saline to normal saline at 75 mL an hour. Encourage oral intake. Avoid nephrotoxins. Continue to hold antihypertensives. 500 mL bolus of normal saline now. Check a.m. cortisol level.
[2023-08-23] MEDS: SODIUM CHLORIDE 0.45% 1,000 ML IV SCH (11:24)
[2023-08-23 11:33] LABS: Glucose,Whole Blood 186 mg/dL (70-110)
[2023-08-23] MEDS: SODIUM CHLORIDE 0.9% 1,000 ML IV SCH ×2 (12:36→12:40)
--- NOTE | 2023-08-23 13:59 | P.PN ---
Progress Note - Text Progress Note Date: 08/23/23 Chief Complaint: Worsening renal function This is a pleasant 77-year-old patient follows with Dr. Machuca. Patient has known diabetes, hypertension, chronic kidney disease. Patient was sent in yesterday to [facility] with elevated BUN/creatinine. Patient is given 2 L of normal saline then left AMA because his is bedbound. In February of this year patient's creatinine was 2.4 BUN 54. Yesterday it was 139/8.8. Patient had a Alcala catheter placed yesterday. Appetite is okay.. Tired. No nausea vomiting. August 19: IV sodium bicarbonate drip because of metabolic acidosis. Eating well. Tired. Up in a chair. August 20: Remains on IV sodium bicarbonate drip. This will drop in creatinine to 6.94. Good urine output. Eating well. Up in a chair. August 21: Patient has bilateral hydronephrosis with the area does not itch her daughter the bladder. [place] a neurogenic bladder. Being followed by urology. Discontinued- IV bicarbonate drip. Good urine output. Slow improvement in creatinine. Oral intake good. Up in a chair. August 22: Patient has a grandson visiting him. Eating well. Good urine output. Significant negative fluid balance. Start the patient on 75 mL of half saline. Per nephrology. Ureter dilatation felt to be chronic from neurogenic bladder.-Unlikely any benefit from ureter stent. Patient started on eliquis yesterday for his paroxysmal atrial fibrillation. Patient remained in sinus rhythm. August 23: Continue with normal saline 75 mL an hour. Creatinine is slowly coming down. Patient eating well. Did ambulate in the hallway. We will check with urology about Alcala catheter. Discussed with patient. Because blood pressure running on the lower side. Change Lopressor to 12.5 by mouth twice a day. Active Medications Acetaminophen (Acetaminophen Tab 325 Mg Tab) 650 mg PO Q6HR PRN PRN Reason: Mild Pain or Fever > 100.5 Apixaban (Apixaban 2.5 Mg Tablet) 2.5 mg PO BID [facility]; Protocol Last Admin: 08/23/23 08:35 Dose: 2.5 mg Dextrose/Water (Dextrose 50% Syringe 50 Ml) 25 ml IVP PER PROTOCOL PRN; Protocol PRN Reason: Hypoglycemia Dextrose/Water (Dextrose 50% Syringe 50 Ml) 50 ml IVP PER PROTOCOL PRN; Protocol PRN Reason: Hypoglycemia Sodium Chloride (Saline 0.9%) 1,000 mls @ 75 mls/hr IV .[id number] [facility] Last Admin: 08/23/23 12:40 Dose: 75 mls/hr Insulin Aspart (Insulin Aspart (Novolog) 100 Unit/Ml Vial) 0 unit SQ AC-TID [facility]; Protocol Last Admin: 08/23/23 12:39 Dose: 2 unit Insulin Aspart (Insulin Aspart (Novolog) 100 Unit/Ml Vial) 6 unit SQ AC-TID [facility] Last Admin: 08/23/23 12:39 Dose: 6 unit Insulin Detemir (Insulin Detemir (Levemir) 100 Unit/Ml Syr) 34 unit SQ DAILY@0700 [facility] Last Admin: 08/23/23 06:04 Dose: 34 unit Magnesium Oxide (Magnesium Oxide 400 Mg Tab) 200 mg PO BID [facility] Last Admin: 08/23/23 08:35 Dose: 200 mg Metoprolol Tartrate (Metoprolol Tartrate 25 Mg Tab) 25 mg PO BID [facility] Last Admin: 08/23/23 12:40 Dose: 25 mg Naloxone HCl (Naloxone 0.4 Mg/Ml 1 Ml Vial) 0.2 mg IV Q2M PRN PRN Reason: Opioid Reversal Past medical history to include: Diabetes, hypertension, chronic kidney disease Social history: . No smoking or alcohol. 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 Physical examination: VITAL SIGNS: 97.4, 18, 16, 133/70, 96% room air GENERAL: Up in a chair comfortable EYES: Pupils equal. Conjunctiva normal. HEENT: External appearance of nose and ears normal, oral cavity grossly normal. NECK: JVD not raised; masses not palpable. HEART: First and second heart sounds are normal; no edema. LUNGS: Respiratory rate normal; clear to auscultation. ABDOMEN: Soft, nontender, liver spleen not palpable, no masses palpable. . Alcala catheter PSYCH: Alert and oriented x3; mood and affect normal. MUSCULOSKELETAL:No Clubbing/cyanosis;muscles-grossly intact. OA INVESTIGATIONS, reviewed in the clinical context: August 23: Potassium 3.5 BUN 118 creatinine 4.7 to magnesium 1.2 August 22: Potassium 3.7 BUN 118 creatinine 5.45 August 21: Potassium 3.1 BUN 117 creatinine 5.97 August 20: Potassium 3.3 BUN 1:30 creatinine 6.94 TSH 0.888 Computed tomography scan abdomen and pelvis: Moderate to severe hydroureteronephrosis that he took a markedly thickened urinary bladder wall. Renal ultrasound: Prominent hydronephrosis bilateral kidney. Septated cyst bilateral right kidney. August 19: White count 9.4 hemoglobin 10.6 platelets [id number] BUN 132 creatinine 7.47 magnesium 1.2 August 18: BUN 131 creatinine 8.17 bicarb 14 August 17: White count 6.9 hemoglobin 11.2 platelets and 15 sodium 140 bicarbonate 16 BUN 133 creatinine 8.0 glucose 208 EKG tracing personally reviewed by me-normal sinus rhythm. Left anterior fascicular block. LVH. Assessment and plan: -Acute on chronic kidney disease: Slow to respond Nephrology consult. Strict I's and O's. IV bicarbonate drip-discontinued saline 75 mL an hour. Follow renal function closely -Metabolic acidosis secondary to renal failure: Improved IV sodium bicarbonate discontinued -Bilateral [place] nephrosis with hydroureter. Secondary to Neurogenic bladder. Plan urology: Ureter stents not felt to be beneficial at this is felt to be chronic. Alcala catheter. Follow with urology. -Essential hypertension, with chronic kidney disease: Running on the lower side. Stop amlodipine. Cutback Lopressor 12.5 mg twice a day- -Paroxysmal atrial fibrillation with rapid ventricular rate on presentation. Has been back in sinus rhythm since presentation. Lopressor 12.5 mg twice a day -Diabetes mellitus type 2, chronically on insulin, uncontrolled with hyperglycemia Levemir 34 units. NovoLog 6 units before meals 3 times a day Follow sliding scale with Accu-Cheks -Chronic kidney disease likely nephrosclerosis and diabetic nephropathy. creatinine was 2.1 in February 2023 -Primary osteoarthritis Tylenol as needed -Full code IV fluids changed to normal saline. Lopressor changed to 12.5 twice a day. We'll check with urology about the Alcala catheter. Discussed with patient. Increase magnesium oxide 2 3 times a day. Past Medical History Past Medical History: Diabetes Mellitus, Hypertension Past Surgical History: No Surgical Hx Reported Past Psychological History: No Psychological Hx Reported Smoking Status: Never smoker Past Alcohol Use History: None Reported Past Drug Use History: None Reported
[2023-08-23] MEDS: MAGNESIUM SULFATE-D5W PMX 1 GM in DEXTROSE/WATER 1 100ML.BAG IVPB SCH ×3 (15:57→19:01)
[2023-08-23 16:26] LABS: Glucose,Whole Blood 126 mg/dL (70-110)
[2023-08-23 20:09] LABS: Glucose,Whole Blood 171 mg/dL (70-110)
[2023-08-23] MEDS: METOPROLOL TARTRATE 12.5 MG TAB PO SCH (20:29)
[2023-08-24 07:00] LABS: Glucose,Whole Blood 151 mg/dL (70-110)
[2023-08-24] MEDS: INSULIN ASPART (NovoLOG) 100 UNIT/ML VIAL SQ SCH ×6 (07:01→17:02)
[2023-08-24] MEDS: INSULIN DETEMIR (LEVEMIR) 100 UNIT/ML SYR SQ SCH (07:24)
[2023-08-24 08:33] LABS: African American GFR (CKD) 16 (>60 ml/min/1.73 sqM); Anion Gap 10 mmol/L; Calcium 7.6 mg/dL (8.4-10.2); Carbon Dioxide 27 mmol/L (22-30); Chloride 104 mmol/L (98-107); Glucose 152 mg/dL (74-99); Magnesium 1.9 mg/dL (1.6-2.3); Non-African American GFR(CKD) 14 (>60 ml/min/1.73 sqM); Potassium 4.4 mmol/L (3.5-5.1); Sodium 141 mmol/L (137-145)
--- NOTE | 2023-08-24 09:23 | P.PN ---
Subjective Patient is seen in follow for acute kidney injury. Renal function improving. Nonoliguric. Oral intake is good. Wants to go home. No changes overnight. Vital signs are stable. General: No acute distress. HEENT: Head exam is unremarkable. LUNGS: No audible rhonchi or wheezes. HEART: Rate and Rhythm are regular. ABDOMEN: Nontender. EXTREMITITES: No edema. Objective - Vital Signs Vital signs: Vital Signs Temp 98.2 F 08/24/23 07:42 Pulse 77 08/24/23 08:00 Resp 16 08/24/23 08:00 BP 132/75 08/24/23 07:42 Pulse Ox 99 08/24/23 04:00 FiO2 Intake & Output 08/23/23 08/24/23 08/24/23 18:59 06:59 18:59 Intake Total 480 75 225 Output Total 975 2300 Balance -495 -7991 225 Weight 76.7 kg Intake: Intake, IV Titration 75 Amount Sodium Chloride 0.9% 1, 75 000 ml @ 75 mls/hr IV . [id number] [facility] Rx#:[id number] Oral 480 225 Output: Urine 975 2300 Other: Voiding Method Indwelling Catheter Indwelling Catheter Indwelling Catheter - Labs CBC & Chem 7: 08/19/23 07:39 08/23/23 07:14 Labs: Abnormal Lab Results - Last 24 Hours (Table) 08/23/23 08/23/23 08/23/23 Range/Units 07:14 11:31 16:25 POC Glucose (mg/dL) 186 H 126 H (70-110) mg/dL Magnesium 1.2 L (1.6-2.3) mg/dL 08/23/23 08/24/23 Range/Units 20:04 06:58 POC Glucose (mg/dL) 171 H 151 H (70-110) mg/dL Magnesium (1.6-2.3) mg/dL Assessment and Plan Plan: Assessment: 1. Acute kidney injury secondary to obstructive uropathy with ultrasound showing bilateral hydronephrosis. Also with urinary retention. Has Alcala catheter. Urology following. Creatinine 8 on admission 4.7 yesterday. Unknown baseline renal function. 2. Hypokalemia from postobstructive diuresis. Being replaced. Also component of magnesium deficiency. 3. Diabetes mellitus. 4. Hypomagnesemia from poor intake and postobstructive diuresis. Replaced. Plan: Maintain normal saline at 75 mL an hour. Encourage oral intake. Avoid nephrotoxins. Continue to hold antihypertensives. Follow-up a.m. cortisol level and labs.
[2023-08-24 09:24] LABS: Blood Urea Nitrogen 103 mg/dL (9-20)
[2023-08-24] MEDS: APIXABAN 2.5 MG TABLET PO SCH (09:53)
[2023-08-24] MEDS: METOPROLOL TARTRATE 12.5 MG TAB PO SCH (09:54)
[2023-08-24] MEDS: MAGNESIUM OXIDE 400 MG TAB PO SCH ×2 (09:54→16:55)
[2023-08-24 11:07] VITALS: RESP 18
[2023-08-24 12:16] LABS: Glucose,Whole Blood 118 mg/dL (70-110)
[2023-08-24] MEDS: SODIUM CHLORIDE 0.9% 1,000 ML IV SCH (14:15)
[2023-08-24 16:51] LABS: Glucose,Whole Blood 144 mg/dL (70-110)
[2023-08-24 17:08] VITALS: BP 110/52; PULSE 70; TEMP 97.8
--- NOTE | 2023-08-24 22:23 | P.DS ---
Providers Date of admission: 08/18/23 02:24 Expected date of discharge: 08/24/23 Attending physician: Hardeep William Consults: 08/18/23 02:23 Consult Physician Routine Consulting Provider: Mary Richey Consult Reason/Comments: ARF Do you want consulting provider notified?: Yes 08/18/23 11:03 Consult Physician Routine Consulting Provider: James Mooney Consult Reason/Comments: retention Do you want consulting provider notified?: Yes 08/20/23 00:14 Consult Physician Routine Consulting Provider: Tera Yuen Consult Reason/Comments: NOS A-fib Do you want consulting provider notified?: Yes Primary care physician: [facility] Course: Chief Complaint: Worsening renal function This is a pleasant 77-year-old patient follows with Dr. Machuca. Patient has known diabetes, hypertension, chronic kidney disease. Patient was sent in yesterday to [facility] with elevated BUN/creatinine. Patient is given 2 L of normal saline then left AMA because his is bedbound. In February of this year patient's creatinine was 2.4 BUN 54. Yesterday it was 139/8.8. Patient had a Alcala catheter placed yesterday. Appetite is okay.. Tired. No nausea vomiting. August 19: IV sodium bicarbonate drip because of metabolic acidosis. Eating well. Tired. Up in a chair. August 20: Remains on IV sodium bicarbonate drip. This will drop in creatinine to 6.94. Good urine output. Eating well. Up in a chair. August 21: Patient has bilateral hydronephrosis with the area does not itch her daughter the bladder. [place] a neurogenic bladder. Being followed by urology. Discontinued- IV bicarbonate drip. Good urine output. Slow improvement in creatinine. Oral intake good. Up in a chair. August 22: Patient has a grandson visiting him. Eating well. Good urine output. Significant negative fluid balance. Start the patient on 75 mL of half saline. Per nephrology. Ureter dilatation felt to be chronic from neurogenic bladder.-Unlikely any benefit from ureter stent. Patient started on eliquis yesterday for his paroxysmal atrial fibrillation. Patient remained in sinus rhythm. August 23: Continue with normal saline 75 mL an hour. Creatinine is slowly coming down. Patient eating well. Did ambulate in the hallway. We will check with urology about Alcala catheter. Discussed with patient. Because blood pressure running on the lower side. Change Lopressor to 12.5 by mouth twice a day. August 24: Doing well. Up and about. Very good urine output. Discussed with Dr. Chinchilla from nephrology. Okay to discharge. Repeat labs in 4 days. Follow- up with nephrology. Patient also to follow-up with urology. Discussed with patient. Alcala was discontinued by urology today Discussion and discharge planning more than 35 minutes Past medical history to include: Diabetes, hypertension, chronic kidney disease Social history: . No smoking or alcohol. 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 Physical examination: VITAL SIGNS: 97.8, 70, 18, 110/52, 97% room air GENERAL: Up in a chair comfortable EYES: Pupils equal. Conjunctiva normal. HEENT: External appearance of nose and ears normal, oral cavity grossly normal. NECK: JVD not raised; masses not palpable. HEART: First and second heart sounds are normal; no edema. LUNGS: Respiratory rate normal; clear to auscultation. ABDOMEN: Soft, nontender, liver spleen not palpable, no masses palpable. . Alcala catheter PSYCH: Alert and oriented x3; mood and affect normal. MUSCULOSKELETAL:No Clubbing/cyanosis;muscles-grossly intact. OA INVESTIGATIONS, reviewed in the clinical context: August 24: Potassium 4.4 BUN 103 creatinine 3.9 magnesium 1.9 cortisol 21 Computed tomography scan abdomen and pelvis: Moderate to severe hydroureteronephrosis that he took a markedly thickened urinary bladder wall. Renal ultrasound: Prominent hydronephrosis bilateral kidney. Septated cyst bilateral right kidney. August 17: White count 6.9 hemoglobin 11.2 platelets and 15 sodium 140 bicarbonate 16 BUN 133 creatinine 8.0 glucose 208 EKG tracing personally reviewed by me-normal sinus rhythm. Left anterior fascicular block. LVH. Assessment and plan: -Acute on chronic kidney disease: Improving Nephrology following IV bicarbonate drip-discontinued Patient labs in 3-4 days. -Metabolic acidosis secondary to renal failure: Improved IV sodium bicarbonate discontinued -Bilateral [place] nephrosis with hydroureter. Secondary to Neurogenic bladder. Plan urology: Ureter stents not felt to be beneficial at this is felt to be chronic. Alcala catheter. Follow with urology. -Essential hypertension, with chronic kidney disease: Running on the lower side. Lopressor 12.5 mg twice a day- -Paroxysmal atrial fibrillation with rapid ventricular rate on presentation. Has been back in sinus rhythm since presentation. Lopressor 12.5 mg twice a day. Eliquis 2.5 mg twice a day -Diabetes mellitus type 2, chronically on insulin, uncontrolled with hyperglyce debbie Levemir 34 units. NovoLog 6 units before meals 3 times a day Follow sliding scale with Accu-Cheks -Chronic kidney disease likely nephrosclerosis and diabetic nephropathy. creatinine was 2.1 in February 2023 -Primary osteoarthritis Tylenol as needed -Full code Disposition: Home Past Medical History Past Medical History: Diabetes Mellitus, Hypertension Past Surgical History: No Surgical Hx Reported Past Psychological History: No Psychological Hx Reported Smoking Status: Never smoker Past Alcohol Use History: None Reported Past Drug Use History: None Reported Plan - Discharge Summary Discharge Rx Participant: No New Discharge Prescriptions: New Metoprolol Tartrate [Lopressor] 12.5 mg PO BID #60 tab Acetaminophen Tab [Tylenol] 650 mg PO Q6HR PRN tab PRN Reason: Mild Pain Or Fever > 100.5 Apixaban [Eliquis] 2.5 mg PO BID #60 tab Magnesium Oxide [Mag-Ox] 400 mg PO TID #60 tab Continue Insulin Glargine,Hum.rec.anlog [Lantus Solostar Pen] 32 units SQ DAILY Discontinued atenoloL [Tenormin] 50 mg PO DAILY Lisinopril-Hctz 20-12.5 mg [Zestoretic 20-12.5] 1 tab PO BID Discharge Medication List Insulin Glargine,Hum.rec.anlog [Lantus Solostar Pen] 32 units SQ DAILY 08/18/23 [History] Acetaminophen Tab [Tylenol] 650 mg PO Q6HR PRN tab 08/24/23 [Rx] Apixaban [Eliquis] 2.5 mg PO BID #60 tab 08/24/23 [Rx] Magnesium Oxide [Mag-Ox] 400 mg PO TID #60 tab 08/24/23 [Rx] Metoprolol Tartrate [Lopressor] 12.5 mg PO BID #60 tab 08/24/23 [Rx] Follow up Appointment(s)/Referral(s): Hermelindo Kiser MD [STAFF PHYSICIAN] - 2 Weeks Nikunj Machuca MD [Primary Care Provider] - 1 Week Rey Chinchilla DO [STAFF PHYSICIAN] - 1 Week Discharge Disposition: HOME SELF-CARE
== END 2023-08-24 19:46 | disposition home or self-care (01) | DRG 683 ==
LOC: EC 20:34 → 3SCARD 08-18 02:24
PROVIDERS: ADMIT Hospitalist; ATTEND Hospitalist
DX: N17.9 Acute kidney failure, unspecified (principal); E87.20 Acidosis, unspecified; E87.3 Alkalosis; R33.9 Retention of urine, unspecified; N13.9 Obstructive and reflux uropathy, unspecified; E11.22 Type 2 diabetes mellitus with diabetic chronic kidney disease; N13.1 Hydronephrosis with ureteral stricture, not elsewhere classified; T47.1X5A Adverse effect of other antacids and anti-gastric-secretion drugs, initial encounter; I12.9 Hypertensive chronic kidney disease with stage 1 through stage 4 chronic kidney disease, or unspecified chronic kidney disease; N18.9 Chronic kidney disease, unspecified; M19.91 Primary osteoarthritis, unspecified site; N32.89 Other specified disorders of bladder; D63.1 Anemia in chronic kidney disease; N31.9 Neuromuscular dysfunction of bladder, unspecified; I48.0 Paroxysmal atrial fibrillation; I44.4 Left anterior fascicular block; E87.6 Hypokalemia; E83.42 Hypomagnesemia; T50.2X5A Adverse effect of carbonic-anhydrase inhibitors, benzothiadiazides and other diuretics, initial encounter; E11.65 Type 2 diabetes mellitus with hyperglycemia; Z79.4 Long term (current) use of insulin; Z79.899 Other long term (current) drug therapy
CPT/HCPCS: 36415; 51702; 74176; 76770; 80048; 80053; 81003; 82533; 83735; 84100; 84443; 85025; 93005; 93306; 96361; 96372; 96374; 99285

== ENCOUNTER → 2023-10-25 | Outpatient (CLI) | payer MEDICARE ==
[2023-10-25 16:26] LABS: WBC 5.94 X 10*3/uL (4.50-10.00)
[2023-10-25 16:27] LABS: Basophils # (A) 0.09 X 10*3/uL (0.00-0.10); Basophils % (A) 1.5 %; Eosinophils # (A) 0.65 X 10*3/uL (0.04-0.35); Eosinophils % (A) 10.9 %; HGB 10.1 g/dL (13.0-17.0); Lymphocytes # (A) 1.23 X 10*3/uL (0.90-5.00); Lymphocytes % (A) 20.7 %; MCH 31.7 pg (27.0-32.0); MCHC 32.6 g/dL (32.0-37.0); MCV 97.2 FL (80.0-97.0); Monocytes # (A) 0.81 X 10*3/uL (0.20-1.00); Monocytes % (A) 13.6 %; NRBC Per 100 WBC 0 X 10*3/uL (0.00-0.01); Neutrophils # (A) 3.13 X 10*3/uL (1.80-7.70); Neutrophils % (A) 52.8 %; Platelet Count 191 X 10*3/uL (140-440); RBC 3.19 X 10*6/uL (4.40-5.60); RDW 12.7 % (11.5-14.5)
[2023-10-25 19:35] LABS: Appearance,Urine Cloudy (Clear); Bilirubin,Urine Negative (Negative); Blood,Urine Small (Negative); Color,Urine Yellow (Yellow); Ketones,Urine Negative (Negative); Nitrite,Urine Negative (Negative); PH, Urine >=9.0; Specific Gravity,Urine 1.012 (1.001-1.030); Urobilinogen,Urine 0.2 E.U./DL
[2023-10-25 20:48] LABS: Bacteria,Urine 3+ (None Seen); Triple Phosphate Crystal,Urine Present
[2023-10-26 02:44] LABS: BUN/Creat Ratio 23.78 Ratio (12.00-20.00); Blood Urea Nitrogen 42.8 mg/dL (9.0-27.0); Calcium 9.1 mg/dL (8.7-10.3); Carbon Dioxide 25.4 mmol/L (21.6-31.8); Chloride 104 mmol/L (96-109); Glucose 119 mg/dL (70-110); Potassium 4.9 mmol/L (3.5-5.5); Sodium 141 mmol/L (135-145)
== END | disposition home or self-care (01) ==
LOC: LABPAT 11:31
PROVIDERS: ATTEND Urology
DX: Z01.812 Encounter for preprocedural laboratory examination (principal); N40.1 Benign prostatic hyperplasia with lower urinary tract symptoms; R35.0 Frequency of micturition
CPT/HCPCS: 36415; 80048; 81001; 85025; 87086

== ENCOUNTER → 2023-12-09 | Outpatient (CLI) | payer MEDICARE ==
[2023-12-09 16:16] LABS: BUN/Creat Ratio 19.25 Ratio (12.00-20.00); Blood Urea Nitrogen 38.5 mg/dL (9.0-27.0); Calcium 9.3 mg/dL (8.7-10.3); Chloride 106 mmol/L (96-109); Glucose 132 mg/dL (70-110); Potassium 4.7 mmol/L (3.5-5.5); Sodium 143 mmol/L (135-145)
[2023-12-09 18:14] LABS: Basophils # (A) 0.06 X 10*3/uL (0.00-0.10); Basophils % (A) 0.7 %; Eosinophils # (A) 0.09 X 10*3/uL (0.04-0.35); Eosinophils % (A) 1.1 %; HCT 35.7 % (39.6-50.0); HGB 11.6 g/dL (13.0-17.0); Lymphocytes # (A) 0.87 X 10*3/uL (0.90-5.00); Lymphocytes % (A) 10.5 %; MCH 31.8 pg (27.0-32.0); MCHC 32.5 g/dL (32.0-37.0); MCV 97.8 FL (80.0-97.0); Mean Platelet Volume 11.2 FL (9.5-12.2); Monocytes # (A) 0.71 X 10*3/uL (0.20-1.00); Monocytes % (A) 8.6 %; NRBC Per 100 WBC 0 X 10*3/uL (0.00-0.01); Neutrophils # (A) 6.55 X 10*3/uL (1.80-7.70); Neutrophils % (A) 78.9 %; Platelet Count 180 X 10*3/uL (140-440); RBC 3.65 X 10*6/uL (4.40-5.60); RDW 12.7 % (11.5-14.5)
[2023-12-09 19:46] LABS: Appearance,Urine Cloudy (Clear); Bilirubin,Urine Negative (Negative); Blood,Urine Negative (Negative); Color,Urine Yellow (Yellow); Ketones,Urine Negative (Negative); Nitrite,Urine Positive (Negative); PH, Urine >=9.0; Specific Gravity,Urine 1.016 (1.001-1.030); Urobilinogen,Urine 0.2 E.U./DL
[2023-12-09 20:18] LABS: Amorphous Sediment,Urine Present (None Seen); Bacteria,Urine 4+ (None Seen); Triple Phosphate Crystal,Urine Present
== END | disposition home or self-care (01) ==
LOC: LABPAT 11:16
PROVIDERS: ATTEND Urology
DX: Z01.812 Encounter for preprocedural laboratory examination (principal); N40.1 Benign prostatic hyperplasia with lower urinary tract symptoms
CPT/HCPCS: 80048; 81001; 85025; 87086

== ENCOUNTER 2023-12-21 07:43 | Day surgery (SDC) | payer MEDICARE ==
--- NOTE | 2023-12-21 07:09 | P.HPIHPCON ---
History of Present Illness H&P Date: 12/21/23 Chief Complaint: BPH, urinary retention This is a 78-year-old male with history of BPH, urinary retention has failed multiple trial voids. Underwent a cystoscopy that showed evidence of an obstructive prostate. Option of a TURP was discussed with him in detail. Aware the risk which includes but not limited to bleeding, infection, urinary incontinence, retrograde ejaculation. Discussed also the risk of persistent retention even with a TURP. Risk of anesthesia was also discussed in detail. He understood all the risk and agreed to proceed Consent for Procedure: I have explained the operation/procedure to the patient, including the risks, benefits, side effects, alternative therapies (including not receiving the proposed treatment or service), the likelihood of the patient achieving his/her goals, and potential recuperation problems for the procedure/sedation/analgesia, as well as any blood products, if indicated. I also explained to the patient the risks, benefits and side effects of the alternatives, as well as the risks related to not receiving the proposed procedure, care, treatment, or services. Past Medical History Past Medical History: Diabetes Mellitus, Hyperlipidemia, Hypertension, Prostate Disorder Additional Past Medical History / Comment(s): enlarged prostate, decreased kidney function History of Any Multi-Drug Resistant Organisms: None Reported Past Surgical History: No Surgical Hx Reported Past Anesthesia/Blood Transfusion Reactions: No Reported Reaction Smoking Status: Never smoker - Past Family History Father Family Medical History: No Reported History Medications and Allergies Home Medications Medication Instructions Recorded Confirmed Type Insulin Glargine,Hum.rec.anlog 32 units SQ QAM 08/18/23 12/14/23 History [Lantus Solostar Pen] Apixaban [Eliquis] 2.5 mg PO BID 12/14/23 12/14/23 History Rosuvastatin [Crestor] 10 mg PO HS 12/14/23 12/14/23 History Sulfamethoxazole/Trimethoprim 1 each PO BID 12/14/23 12/14/23 History [Bactrim Ds Tablet] Allergies Allergy/AdvReac Type Severity Reaction Status Date / Time No Known Allergies Allergy Verified 12/14/23 14:18 Surgical - Exam - General no distress, no pain - Eyes normal ocular movement, no pale - ENT normal nares, normal mucosa - Respiratory normal expansion, normal respiratory effort - Abdomen Abdomen: soft, non tender, no distended Assessment and Plan Assessment: OR for bipolar TURP
[~2023-12-21 07:43] MED LIST: DEXAMETHASONE SOD PHOSPHATE 4 MG/ML 1 ML VIAL IV ONE; GENTAMICIN 120 MG in SODIUM CHLORIDE 0.9% 100 ML IVPB PRN; HYDROmorphone 0.5 MG/0.5 ML SYRINGE IVP PRN; LACTATED RINGERS 1,000 ML IV SCH; LIDOCAINE 1% (10MG/ML) FOR IV START INTRADERMA PRN; MIDAZOLAM 2 MG/2 ML VIAL IV PRN; ONDANSETRON 4 MG/2 ML VIAL IVP ONE
[2023-12-21 08:33] LABS: Glucose,Whole Blood 158 mg/dL (70-110)
[2023-12-21] MEDS ORDERED: SUCCINYLCHOLINE CHLORIDE 200 MG/10 ML VIAL IV ONE (09:08)
[2023-12-21] MEDS ORDERED: MIDAZOLAM 2 MG/2 ML VIAL ONE (09:08)
[2023-12-21] MEDS ORDERED: PROPOFOL 10 MG/ML 20 ML VIAL IV ONE (09:08)
[2023-12-21] MEDS ORDERED: GLYCOPYRROLATE 0.2 MG/ML 2 ML VIAL ONE (09:08)
[2023-12-21] MEDS ORDERED: LIDOCAINE 1% INJ 10MG/ML (20 ML MDV) ONE (09:08)
[2023-12-21] MEDS ORDERED: ROCURONIUM 10 MG/ML (5 ML VIAL) IV ONE (09:08)
[2023-12-21] MEDS ORDERED: NEOSTIGMINE 1 MG/ML 10 ML VIAL ONE (09:08)
[2023-12-21] MEDS ORDERED: fentaNYL (PF) 50 MCG/ML 2 ML AMP ONE (09:08)
--- NOTE | 2023-12-21 10:36 | P.OP ---
Date of Procedure: 12/21/23 Preoperative Diagnosis: BPH Postoperative Diagnosis: Same Procedure(s) Performed: TURP (bipolar) Implants: none Anesthesia: HILLARY Surgeon: Hermelindo Kiser Estimated Blood Loss (ml): 50 Pathology: other (Prostate adenoma) Condition: stable Disposition: PACU Indications for Procedure: This is a 78-year-old male with history of BPH, urinary retention has failed multiple trial voids. Underwent a cystoscopy that showed evidence of an obstructive prostate. Option of a TURP was discussed with him in detail. Aware the risk which includes but not limited to bleeding, infection, urinary incontinence, retrograde ejaculation. Discussed also the risk of persistent retention even with a TURP. Risk of anesthesia was also discussed in detail. He understood all the risk and agreed to proceed Operative Findings: Trilobar hyperplasia Description of Procedure: Patient brought to the operating room, general anesthesia was induced. He was prepped and draped in sterile fashion and placed in dorsolithotomy position. Resectoscope with a 25 was inserted per urethra. Cystoscopy was performed and showed a heavily trabeculated bladder, with evidence of catheter cystitis. There was evidence of trilobar hyperplasia, the prostate was completely occlusive but was fairly short using the bipolar resectoscope the prostate was resected down to the surgical capsule. Resection was carried distal to the bladder neck but staying proximal to the Veru. Points of bleeding were controlled with cautery. At this all prostate chips was irrigated out. There was no evidence of bladder perforation, capsular perforation or injury to the ureteral orifice ease. The prostate fossa was wide open, There was no injury to the external sphincter. at this time the resectoscope was withdrawn and a 22 [place] was placed with return of clear urine. Catheter irrigated to clear. patient tolerated procedure well was taken to recovery in stable condition
[2023-12-21 10:45] VITALS: TEMP 97.8
[2023-12-21 11:30] LABS: Glucose,Whole Blood 166 mg/dL (70-110)
[2023-12-21 12:12] VITALS: BP 167/88; PULSE 63; RESP 18
== END 2023-12-21 12:38 | disposition home or self-care (01) ==
LOC: OR 07:43
PROVIDERS: ATTEND Urology
DX: C61 Malignant neoplasm of prostate (principal); N40.1 Benign prostatic hyperplasia with lower urinary tract symptoms; I10 Essential (primary) hypertension; E78.5 Hyperlipidemia, unspecified; E11.9 Type 2 diabetes mellitus without complications; N42.9 Disorder of prostate, unspecified; Z79.4 Long term (current) use of insulin; Z79.01 Long term (current) use of anticoagulants; Z79.2 Long term (current) use of antibiotics; Z79.899 Other long term (current) drug therapy
CPT/HCPCS: 52601; 88344; 88305; J2250; J0330; J2710; J0690; J2001; J3010; J1580; J2704

== ENCOUNTER → 2024-02-01 | Outpatient (CLI) | payer MEDICARE ==
--- NOTE | 2024-02-02 14:30 | NM ---
EXAMINATION TYPE: NM bone scan whole body DATE OF EXAM: 02/01/2024 COMPARISON: CT 08/20/2023 CLINICAL INDICATION: Male, 78 years old with history of C61 Prostate cancer; TECHNIQUE: Delayed whole-body scanning was performed following the injection of 24.9 mCi Tc 99m MDP. Images acquired 5 hours post injection. FINDINGS: Some mild degenerative changes scattered through the posterior elements of the lower third thoracic s pine and right mid to lower lumbar spine. Degenerative tracer activity at the shoulders. No suspici ous distribution of activity to suggest bone metastases. Activity collected with a narrowed bladder corresponds to the thickened appearance of the bladder on prior CT. IMPRESSION: No scintigraphic evidence for osseous metastatic disease.
--- NOTE | 2024-02-04 12:14 | MR ---
EXAMINATION TYPE: MR Prostate wo/w con DATE OF EXAM: 02/01/2024 7:12 AM COMPARISON: 08/20/2023 CLINICAL INDICATION:Male, 78 years old with history of C61 Prostate cancer; Prostate cancer. TECHNIQUE: Multi-planar, multi-sequence imaging of the pelvis is performed prior to and following the uncomplicated administration of bolus intravenous gadolinium. CONTRAST: 10 Gadavist Interpretive Criteria: PI-RADS v2.1 SERUM PSA: No data available. SURGICAL PATHOLOGY: Positive post TURP specimen. FINDINGS: Prostatic dimensions: 4.0 x 4.0 x 4.0 cm. Ellipsoid Volume:33.51 "Bullet" Volume:41.89 The "bullet" volume may be a better representation of prostate volume for prostate glands smaller carmelo n 55 mL. CENTRAL GLAND (Central and Transition Zones/CZ+TZ): Post TURP changes with diffuse low signal throughout the central gland and peripheral zone there is a fingerlike extension into the left seminal vesicles. (PI-RADS 5) PERIPHERAL ZONE (PZ): Limited evaluation due to rectal gas. Somewhat diffuse low signal in the peripheral zone which. Bilat eral linear, indistinct wedgelike areas of low ADC, and low T2 signal, No evidence of masslike abnorm ality, or localized perfusional hypervascularity, to further suggest a focus of clinically significan t prostate cancer. (PI-RADS 2) SEMINAL VESICLES (SV): Diffuse low signal throughout the left seminal vesicles. 3 appear atrophic. PERIPROSTATIC TISSUES: Unremarkable. LYMPH NODES: There is one prominent left pelvic sidewall lymph node measuring up to 6 mm. Present on 08/20/2023 ma y be fractionally larger on today's exam. REMAINING PELVIS: Urinary bladder wall trabeculations with diverticula. Multiple suspected stones are in the post TURP surgical bed No abnormal free or organized intrapelvic fluid collection. No pathologic bowel dilation or mural thickening. Left fat-containing inguinal hernia. Bilateral hydroceles. OSSEOUS STRUCTURES: There is a low T2 signal lesion in the right pubic symphysis measuring 8 mm. Finding may been present on prior CT on 08/11/2023. No abnormal bone scan uptake on this lesion on 02/01/2024. Degeneration salvador nges of the hips with subchondral cystic change bilaterally. IMPRESSION: 1. Limited evaluation secondary to rectal gas. Post surgical changes with Diffuse low signal througho ut the peripheral zone and central gland. There is a masslike extension which is limited in evaluatio n extension to the posterior left seminal vesicles concerning for prostate adenocarcinoma. Additional ly anterior to the prostate gland is abnormal soft tissue nodule measuring 20 x 14 mm. There is one b melany lesion in the right pubic symphysis which was seen on prior CT and does not appear to have nuclea r medicine uptake on nuclear medicine bone scan and one lymph node in the left pelvis suspicious for metastatic disease. Further workup with nuclear medicine PET/CT gallium-68 PSMA scan is recommended f or further evaluation of metastatic disease. . Maximum PI-RADS score: 5. 2. Moderate BPH, estimated gland volume 41.89mL. 3. Urinary bladder wall trabeculations with diverticula. Findings likely secondary to chronic bladder outlet obstruction. 4. Multiple bladder stones are in the post TURP surgical bed.
== END | disposition home or self-care (01) ==
LOC: RADMRIMAIN 05:51
PROVIDERS: ATTEND Urology
DX: C61 Malignant neoplasm of prostate (principal); N40.0 Benign prostatic hyperplasia without lower urinary tract symptoms; N32.89 Other specified disorders of bladder; K57.90 Diverticulosis of intestine, part unspecified, without perforation or abscess without bleeding; N21.0 Calculus in bladder
CPT/HCPCS: 72197; 78306; A9503; A9585